=== PATIENT | male | born 1940 | race Caucasian/White ===

== ENCOUNTER 2018-04-29 10:13 | Inpatient (IN) | payer OTHER ==
[~2018-04-29] VITALS: Ht 175.3 cm; Wt 115.3 kg
--- NOTE | ~2018-04-29 | SPIROMETRY ---
[facility] [place] [address] SPIROMETRY Name: ABIMBOLA CHAMPION Room #: 205-P [facility] IN M.R.#: [id number] Admission: 04/29/18 Attend Phys: Esequiel Montes MD Discharge: 05/05/18 Date of : 38 Report #: [id number] THIS REPORT FOR: //name// >> SPIROMETRY: (BTPS) Height: 69 in cm Weight: 271 lbs kg Exam Date: 05/02/18 PRE-RX POST-RX PRED BEST %PRED BEST %PRED %CHG FVC LITERS . 3.93 . 2.70 . 69 . 2.68 . 68 . -1 FEV1 LITERS . 2.81 . 1.55 . 55 . 1.58 . 56 . 2 FEV1/FVC % . 72 . 57 . 80 . 59 . 82 . 3 OKV33-91% L/Sec . 1.97 . 0.81 . 41 . 0.94 . 48 . 16 PEF L/SEC . 7.23 . 4.12 . 57 . 4.10 . 57 . -0 FEF50/FIF50 UNITLESS . . . . . . >> INTERPRETATION/IMPRESSION: CC: Esequiel Montes SPIROMETRY FEV1 1.55 liters (55%). FVC 2.70 liters (69%). FEV1/FVC 57%. Postbronchodilator therapy with no change. IMPRESSION: Pulmonary function studies are consistent with a moderate-severe obstructive airflow defect, with no significant response to bronchodilator therapy. <ELECTRONICALLY SIGNED> By: Wilmer Mclean MD 05/05/182014 Wimler Mclean MD /nt
--- NOTE | ~2018-04-29 | P ---
[facility] [place] [address] PROCEDURE REPORT Name: JAYCEEABIMBOLA R Room #: 205-P [facility] IN M.R.#: [id number] Admission: 04/29/18 Attend Phys: Esequiel Montes MD Discharge: 05/05/18 Date of : 39 Report #: [id number] THIS REPORT FOR: //name// CC: Esequiel Montes PREOPERATIVE DIAGNOSIS: Sustained ventricular tachycardia. POSTOPERATIVE DIAGNOSIS: Sustained ventricular tachycardia. HISTORY: The patient is a 77-year-old male with a history of coronary artery disease, ischemic cardiomyopathy who had an episode of sustained ventricular tachycardia while in the hospital and is here for ICD implantation. ANESTHESIA: The patient underwent MAC anesthesia with no anesthesia related complications. DESCRIPTION OF PROCEDURE: The patient underwent informed consent. We discussed the details of the procedure including the risks, which include but not limited to bleeding, infection, vascular damage, cardiac perforation and pneumothorax. He understood these risks and is willing to proceed. The patient was brought to the EP laboratory in fasting and sedated state, prepped and draped in a sterile fashion, received IV antibiotics and underwent a venogram showing patency of the left axillary vein. Next, lidocaine was injected below the level of clavicle. Incision was made, pocket was created over the prepectoral fascia and access was obtained twice to left axillary vein using the extrathoracic approach with sheaths positioned using the modified Seldinger technique. Next, under fluoroscopy, leads were placed in the right ventricular apex and right atrial appendage both with adequate pacing and sensing thresholds. Leads were sutured to the prepectoral fascia. Pocket was irrigated with vancomycin. The device was connected and found to be functioning normally. The pocket was closed in 3 layers, 2-0 for the deep layer, 3-0 for the mid layer, 4-0 for the subcuticular layer. Surgical glue was placed to the outer skin layer. The patient awoke neurologically and hemodynamically intact. No complications and no significant bleeding. The implanted defibrillator was a [employer] model #VQ319493B, serial #[id number]. Atrial lead was a model #2088TC, 52 cm, serial #[id number] with normal pacing and sensing thresholds. The RV lead was a [employer] model #7122Q, 65 cm, serial #[id number] both with normal pacing and sensing thresholds. The device was programmed to the DDDR 60-120 mode. VT monitor zone was set at 150-180 beats per minute. The VT2 zone was set at 181-222 beats per minute with 3 rounds of bursts followed by 3 rounds of ramp followed by max output shocks. The VF zone was set at greater than 222 beats per minute with ATP while charging followed by max output shocks. CONCLUSIONS: [facility] [address] [place] [address] PROCEDURE REPORT Name: ABIMBOLA CHAMPION Room #: 205-P [facility] IN M.R.#: [id number] Admission: 04/29/18 Attend Phys: Esequiel Montes MD Discharge: 05/05/18 Date of : 38 Report #: [id number] 1. Successful dual-chamber ICD implantation. 2. Satisfactory atrial and ventricular pacing and sensing thresholds. <ELECTRONICALLY SIGNED> By: Joce Doughrety MD 05/19/18 0831 0856 1453 Joce Dougherty MD /nt
--- NOTE | ~2018-04-29 | EKG ---
[address] [address] ELECTROCARDIOGRAM REPORT Name: JAYCEEABIMBOLA Room #: 205-P ADM IN M.R.#: [id number] Admission: 04/29/18 Attend Phys: Esequiel Montes MD Discharge: Date of : 39 Report #: [id number] THIS REPORT FOR: //name// [facility] Test Date: 2018-04-30 Test Time: 06:49:01 Pat Name: ABIMBOLA CHAMPION Department: Room: 205 P Gender: M Sander And Polisher: : 1940 Requested By: Byron Holbrook Order Number: [id number] MD: Joce Dougherty Measurements Intervals [place] Rate: 89 P: 55 GA: 191 QRS: 29 QRSD: 132 T: -22 QT: 379 QTc: 462 Interpretive Statements Sinus rhythm Atrial premature complex Probable left atrial enlargement Left ventricular hypertrophy Electronically Signed On 05-01-2018 20:28:38 SUB PLANT MANAGER by Joce Dougherty [email or web address] <ELECTRONICALLY SIGNED> By: Joce Dougherty MD 05/01/182027 0649 0649 Joce Dougherty MD /MARIA DE JESUS
--- NOTE | ~2018-04-29 | 2DMMODE ---
[facility] [address] [place] [address] 2 D/M-MODE ECHOCARDIOGRAM Name: ABIMBOLA CHAMPION Room #: 205-P [facility] IN .R.#: [id number] Admission: 04/29/18 Attend Phys: Esequiel Montes, Discharge: Date of : 38 Date of Service: 04/29/18 1515 Report #: [id number] THIS REPORT FOR: //name// APPROVED REPORT Study performed: 04/29/2018 12:27:14 EXAM: Comprehensive 2D, Doppler, and color-flow Echocardiogram Patient Location: Bedside Room #: 205 Status: routine BSA: 2.36 HR: 83 bpm BP: 150/94 mmHg Rhythm: NSR/irregular Other Information Study Quality: Good Indications Congestive Heart Failure Dyspnea Hx: CABG, ISCM, HTN, HLP, cancer. 2D Dimensions RVDd: 49.54 mm IVSd: 13.07 (7-11mm) LVOT Diam: 21.86 (18-24mm) LVDd: 68.38 mm PWd: 12.00 (7-11mm) LVDs: 53.72 (25-40mm) Aortic Root: 35.00 mm Volumes Left Atrial Volume (Systole) Single Plane 4CH: 128.02 mL Single Plane 2CH: 149.63 mL LA ESV Index: 65.00 mL/m2 Aortic Valve AoV Peak Ba.: 2.75 m/s AO Peak Gr.: 30.15 mmHg LVOT Max P.74 mmHg AO Mean Gr.: 17.33 mmHg AO V2 Mean: 1.97 m/s LVOT Max V: 0.97 m/s AO V2 VTI: 58.45 cm YADIEL Vmax: 1.32 cm2 [facility] [address] [place] [address] 2 D/M-MODE ECHOCARDIOGRAM Name: ABIMBOLA CHAMPION Room #: 205-P [facility] IN [facility].#: [id number] Admission: 04/29/18 Attend Phys: Esequiel Montes, Discharge: Date of : 38 Date of Service: 04/29/18 1515 Report #: [id number] Mitral Valve E/A Ratio: 1.5 MV Decel. Time: 118.31 ms MV E Max Ab.: 1.20 m/s MV A Ab.: 0.81 m/s MV PHT: 34.31 ms IVRT: 66.90 ms Pulmonary Valve PV Peak Ab.: 1.08 m/s PV Peak Gr.: 4.65 mmHg Pulmonary Vein P Vein S: 0.40 m/s P Vein D: 0.74 m/s P Vein S/D Ratio: 0.54 Tricuspid Valve TR Peak Ab.: 3.39 m/s RAP Estimate: 10.00 mmHg TR Peak Gr.: 45.90 mmHg PA Pressure: 56.00 mmHg Left Ventricle Left ventricle is severely dilated. Mild concentric left ventricular hypertrophy. Left ventricular systolic function is mild-moderately decreased. Hypokinesis of base of septum and inferior prasad LVEF is 45%. Moderate diastolic dysfunction is present (pseudonormal filling). Right Ventricle The right ventricle is normal size. The right ventricular systolic function is normal. Atria Left atrium is severely dilated. Right atrium is mildly to moderately dilated. Aortic Valve Aortic valve is moderately calcified. Trace to mild aortic regurgitation. There is moderate valvular aortic stenosis. Calculated aortic valve area is 1.3 cm2 with maximum pressure gradient of 30 mmHg and mean pressure gradient of 17 mmHg. Mitral Valve The mitral valve is normal in structure. Severe mitral regurgitation. [facility] [address] [place] [address] 2 D/M-MODE ECHOCARDIOGRAM Name: ABIMBOLA CHAMPION Room #: 205-P [facility] IN [facility]#: [id number] Admission: 04/29/18 Attend Phys: Esequiel Montes, Discharge: Date of : 38 Date of Service: 04/29/18 1515 Report #: [id number] Tricuspid Valve The tricuspid valve is normal in structure. Trace to mild tricuspid regurgitation. Estimated PAP is 55-60mmHg. Pulmonic Valve Pulmonic valve is not well visualized. Trace pulmonic regurgitation. Great Vessels The aortic root is normal in size. Ascending aorta is not well visualized. IVC is dilated and collapses >50% with inspiration. Pericardium There is no pericardial effusion. <Conclusion> Left ventricular systolic function is mild-moderately decreased. Hypokinesis of base of septum and inferior prasad LVEF is 45%. Left atrium is severely dilated. Aortic valve is moderately calcified. Mild valvular aortic stenosis and insufficiency. Calculated aortic valve area is 1.3 cm2 with maximum pressure gradient of 30 mmHg and mean pressure gradient of 17 mmHg. The mitral valve is normal in structure. Severe, eccentric mitral regurgitation. Trace to mild tricuspid regurgitation. Estimated pulmonary artery pressure of 55-60mmHg. There is no pericardial effusion. <ELECTRONICALLY SIGNED> By: Byron Holbrook MD, FACC 04/29/18 1515 151 1515 Byron Holbrook MD, FACC /INF
--- NOTE | ~2018-04-29 | HC ---
[facility] [place] [address] [place] [address] CONSULTATION Name: JAYCEEABIMBOLA Room #: 205-P [facility] IN .R.#: [id number] Admission: 04/29/18 Attend Phys: Esequiel Montes MD Discharge: 05/05/18 Date of : 39 Report #: [id number] THIS REPORT FOR: //name// CC: Esequiel Montes DATE OF SERVICE: 05/02/2018 ELECTROPHYSIOLOGY CONSULTATION REASON FOR CONSULTATION: Sustained monomorphic VT. HISTORY OF PRESENT ILLNESS: The patient is a 77-year-old male, with a history of coronary artery disease, status post TX and prior bypass surgery, who was admitted here to the hospital with acute LV systolic heart failure. He had been off of his diuretic since his recent hip surgery. Today at 1:00 p.m., he was in the bathroom and telemetry was noted to go into sustained monomorphic ventricular tachycardia with a tachycardia cycle length of 300 milliseconds that lasted a period of 2 minutes and then terminated on its own. The patient felt presyncopal with this episode. On this hospitalization, he had an echocardiogram showing an EF of 45% with evidence of an inferior septal previous TX with severe left atrial enlargement with mild aortic stenosis and severe mitral regurgitation. PA pressures of 50-60. REVIEW OF SYSTEMS: GENERAL: No fevers or chills. HEENT: No blurred vision. CARDIOVASCULAR: No chest pain. PULMONARY: No productive cough. GASTROINTESTINAL: No nausea or vomiting. GENITOURINARY: No dysuria. MUSCULOSKELETAL: No myalgias or arthralgias. ENDOCRINE: No heat or cold intolerance. PAST MEDICAL HISTORY: 1. Coronary artery disease, status post TX, CABG in 2001. 2. Ischemic cardiomyopathy. 3. Hypertension. 4. Hyperlipidemia. 5. Prostate cancer. 6. Recent hip surgery. 7. Stress test in September 2016, nonischemic. FAMILY HISTORY: Noncontributory. SOCIAL HISTORY: Does not smoke. [facility] [address] [place] [address] CONSULTATION Name: ABIMBOLA CHAMPION Katelynn Room #: 205-P [facility]#: [id number] Admission: 04/29/18 Attend Phys: Esequiel Montes MD Discharge: 05/05/18 Date of : 38 Report #: [id number] ALLERGIES: None. HOME MEDICATIONS: Include olmesartan, Coreg, atorvastatin, vitamins, acetaminophen, aspirin, hydrocodone and gabapentin. PHYSICAL EXAMINATION: VITAL SIGNS: Temperature is 36.6, pulse 93, respiration 14, blood pressure 132/60, sats are 96%. GENERAL: He is in no acute distress. Alert and oriented x 3. HEENT: Oropharynx is clear. NECK: Supple, no thyromegaly. HEART: Regular rate and rhythm with no murmurs, rubs, gallops. LUNGS: Clear to auscultation bilaterally. ABDOMEN: Soft, nontender, nondistended, no hepatosplenomegaly. EXTREMITIES: There is no clubbing, cyanosis or edema. NEUROLOGIC: Cranial nerves 2-12 are intact. LABORATORY DATA: Sodium 139, potassium 4.2, BUN 41, creatinine 1.7, magnesium 2.3. pH of 7.3, pCO2 of 79, pO2 of 71. ProBNP was 2724. His 12-lead EKG this hospitalization shows normal sinus rhythm, no ischemic changes and a narrow QRS complex. His chest x-ray shows enlarged cardiac silhouette, some cephalization, sternal wires and no evidence of pneumonia. No pleural effusions. CT head, no acute process. Lower extremity ultrasounds, no thrombus bilaterally. V/Q scan that was low probability. ASSESSMENT AND PLAN: 1. Sustained monomorphic ventricular tachycardia. 2. Ischemic cardiomyopathy. 3. Coronary artery disease. 4. Prior bypass surgery. 5. Acute on chronic left ventricular systolic heart failure. 6. Obstructive sleep apnea. 7. Hypercapnia, likely secondary to obesity hypoventilation syndrome and sleep apnea. In summary, the patient is a 77-year-old, with history of coronary artery disease, status post prior myocardial infarction as well as an ischemic cardiomyopathy, who has evidence of an episode of spontaneous sustained ventricular tachycardia at 300 milliseconds in duration that lasted 2 minutes with associated presyncopal symptoms. This was noted to induce with premature ventricular contraction. Based on these findings, I have recommended that he undergo dual chamber ICD implantation given his known sinus node dysfunction and advanced age and to help with discrimination of other arrhythmias. We have discussed the details of ICD implantation including the risks, which include, but not limited to, bleeding, infection, vascular damage, cardiac perforation and pneumothorax. He understands these risks and is willing to proceed. After [facility] [address] [place] [address] CONSULTATION Name: ABIMBOLA CHAMPION Katelynn Room #: 205-P [facility] IN M.R.#: [id number] Admission: 04/29/18 Attend Phys: Esequiel Montes MD Discharge: 05/05/18 Date of : 38 Report #: [id number] discussing the case with Dr. Holbrook, given his known prior myocardial infarction, he does have substrate for this ventricular tachycardia. I do not think an ischemic evaluation is warranted. He has had no ischemia and EKGs. I would recommend that we initiate amiodarone therapy. We will initiate an IV drip tonight. I do not think he is a good candidate for sotalol given his chronic renal insufficiency and advanced age and electrolyte imbalances. <ELECTRONICALLY SIGNED> By: Joce Dougherty MD 05/19/18 0832 1448 0339 Joce Dougherty MD /nt
--- NOTE | ~2018-04-29 | EKG ---
[address] [address] ELECTROCARDIOGRAM REPORT Name: ABIMBOLA CHAMPION Room #: 205-P ADM IN M.R.#: [id number] Admission: 04/29/18 Attend Phys: Esequiel Montes MD Discharge: Date of : 39 Report #: [id number] THIS REPORT FOR: //name// [facility] Test Date: 2018-04-29 Test Time: 11:52:16 Pat Name: ABIMBOLA CHAMPION Department: Room: Gender: M Manager Culture: MATTHIAS : 1940 Requested By: Areli Mcneil Order Number: [id number] MD: Joce Dougherty Measurements Intervals [place] Rate: 75 P: 52 RI: 190 QRS: 29 QRSD: 123 T: -17 QT: 372 QTc: 416 Interpretive Statements Sinus rhythm Atrial premature complexes Probable left atrial enlargement IVCD, consider atypical LBBB Compared to ECG 02/15/2002 06:09:07 Atrial premature complex(es) now present Myocardial infarct finding no longer present ST (T wave) deviation no longer present Electronically Signed On 05-01-2018 20:16:25 EXCELLENCE CONSULTANT by Joce Dougherty [email or web address] <ELECTRONICALLY SIGNED> By: Joce Dougherty MD 05/01/182015 1152 115 Joce Dougherty MD /EPI
--- NOTE | ~2018-04-29 | EKG ---
[address] [place] [address] ELECTROCARDIOGRAM REPORT Name: JAYCEEABIMBOLA Pace Room #: 205-P ADM IN M.R.#: [id number] Admission: 04/29/18 Attend Phys: Esequiel Montes MD Discharge: Date of : 38 Report #: [id number] THIS REPORT FOR: //name// [facility] Test Date: 2018-05-02 Test Time: 13:18:49 Pat Name: ABIMBOLA CHAMPION Department: Room: 205 P Gender: M Drapery Hemmer Automatic: SCARLETT : 1940 Requested By: Esequiel Montes Order Number: [id number] MD: Byron Holbrook Measurements Intervals [place] Rate: 93 P: 60 ND: 187 QRS: 20 QRSD: 128 T: -40 QT: 350 QTc: 436 Interpretive Statements Sinus rhythm Ventricular premature complex IVCD Inferior infarct, age indeterminate Nonspecific ST and T wave abnormality Compared to ECG 04/30/2018 06:49:01 Ventricular premature complex(es) now present Electronically Signed On 05-03-2018 8:42:47 MERCHANT MILLER by Byron Holbrook [email or web address] <ELECTRONICALLY SIGNED> By: Byron Holbrook MD, [facility] 05/03/18 0842 1318 1318 Byron Holbrook MD, [facility] /EPI
[~2018-04-29 10:13] MED LIST: APAP650 PO; ASPIRIN325 PO; ATORVASTATIN CA40 MG PO; BENICAR40 MG PO; COREG25 MG PO; HYDROCODON-ACE1 EAC7 PO; NEURONTIN 300300 M1 PO; PRESERVISION A1 EACH PO; TRI-BUFFERED A325 M1 PO
[2018-04-29 11:33] LABS: HEMATOCRIT 33.3 % (42.0-52.0); HEMOGLOBIN 11.1 gm/dL (14.0-18.0); MCH 31.8 pg (26.0-34.0); MCHC 33.4 g/dL (28.0-37.0); MCV 95.3 fL (80.0-100.0); RBC 3.49 mil/uL (4.50-6.00); RDW 15.9 % (10.5-14.5); WBC 8.9 thou/uL (4.0-11.0)
[2018-04-29 11:47] LABS: ALBUMIN 3.5 g/dL (3.4-5.0); CALCIUM 8.7 mg/dL (8.5-10.1); CREATININE 1.3 mg/dL (0.7-1.3); POTASSIUM 4.9 mmol/L (3.5-5.1); TOTAL BILIRUBIN 0.8 mg/dL (<0.1-1.0); TOTAL PROTEIN 7.6 g/dL (6.4-8.2)
[2018-04-29 12:09] VITALS: BP 150/94
[2018-04-29 16:56] VITALS: BP 137/82
[2018-04-29 19:51] VITALS: BP 131/68
[2018-04-30 04:06] VITALS: BP 168/86
[2018-04-30 04:41] LABS: CALCIUM 8.4 mg/dL (8.5-10.1); CREATININE 1.4 mg/dL (0.7-1.3); POTASSIUM 5.6 mmol/L (3.5-5.1)
[2018-04-30 08:16] VITALS: BP 136/76
[2018-04-30 12:57] VITALS: BP 129/55
[2018-04-30 15:09] LABS: BE(vivo) 8.8 mmol/L (-2 to +3); PO2 83.9 mmHg (80.0-100.0); sO2 91.9 % (92.0-98.0)
[2018-04-30 15:10] LABS: PCO2 118.7 mmHg (35.0-45.0); pH 7.156 (7.360-7.450)
[2018-04-30 16:36] VITALS: BP 148/88
[2018-04-30 16:58] LABS: BE(vivo) 7.9 mmol/L (-2 to +3); HCO3 37.6 mmol/L (22.0-26.0); PCO2 86.4 mmHg (35.0-45.0); PO2 71.5 mmHg (80.0-100.0); pH 7.257 (7.360-7.450); sO2 90.9 % (92.0-98.0)
[2018-04-30 19:50] VITALS: BP 138/72
[2018-04-30 20:08] LABS: HCO3 37.5 mmol/L (22.0-26.0); PO2 90.8 mmHg (80.0-100.0); sO2 95.8 % (92.0-98.0)
[2018-04-30 20:09] LABS: pH 7.311 (7.360-7.450)
[2018-05-01 03:54] VITALS: BP 123/64
[2018-05-01 05:11] LABS: CALCIUM 8.7 mg/dL (8.5-10.1); CREATININE 1.7 mg/dL (0.7-1.3); POTASSIUM 4.3 mmol/L (3.5-5.1)
[2018-05-01 07:25] VITALS: BP 127/62
[2018-05-01 11:31] VITALS: BP 104/55
[2018-05-01 17:30] VITALS: BP 134/77
[2018-05-01 19:55] VITALS: BP 125/56
[2018-05-02 03:51] LABS: CALCIUM 8.4 mg/dL (8.5-10.1); CREATININE 1.5 mg/dL (0.7-1.3); POTASSIUM 4.7 mmol/L (3.5-5.1)
[2018-05-02 04:00] VITALS: BP 143/89
[2018-05-02 12:01] VITALS: BP 150/86
[2018-05-02 13:25] VITALS: BP 132/60
[2018-05-02 13:26] LABS: BE(vivo) 8.1 mmol/L (-2 to +3); HCO3 34.9 mmol/L (22.0-26.0); PCO2 59.9 mmHg (35.0-45.0); PO2 71.6 mmHg (80.0-100.0); pH 7.383 (7.360-7.450); sO2 93.8 % (92.0-98.0)
[2018-05-02 13:41] LABS: CALCIUM 9.4 mg/dL (8.5-10.1); CREATININE 1.7 mg/dL (0.7-1.3); POTASSIUM 4.2 mmol/L (3.5-5.1)
[2018-05-02 16:25] VITALS: BP 148/59
[2018-05-02 16:30] LABS: CALCIUM 9.1 mg/dL (8.5-10.1); CREATININE 1.6 mg/dL (0.7-1.3)
[2018-05-02 19:28] VITALS: BP 129/62
[2018-05-03 03:17] VITALS: BP 130/70
[2018-05-03 07:30] VITALS: BP 130/74
[2018-05-03 11:15] VITALS: BP 115/81
[2018-05-03 15:40] VITALS: BP 135/84
[2018-05-03 19:30] VITALS: BP 137/68
[2018-05-04] VITALS (7 sets, daily range): BP systolic 115–156; BP diastolic 64–95
[2018-05-04] MEDS ORDERED: COREG6.25 MG PO (07:24)
[2018-05-04] MEDS ORDERED: TORSEMIDE20 MG PO (07:25)
[2018-05-04] MEDS ORDERED: PREDNISONE 10 M10 MG PO (07:25)
[2018-05-04] MEDS ORDERED: ASPIR 8181 MG PO (07:26)
[2018-05-05 04:20] VITALS: BP 144/81
[2018-05-05 08:01] VITALS: BP 145/99
[2018-05-05 11:13] VITALS: BP 106/58
[2018-05-05] MEDS ORDERED: PACERONE 200 M200 M1 PO (12:33)
[2018-05-05] MEDS ORDERED: CARVEDILOL25 MG PO (12:40)
== END 2018-05-05 14:30 | disposition home or self-care (01) | DRG 226 ==
LOC: 2N 10:13
PROVIDERS: Family Medicine; Internal Medicine Cardiovascular Disease; Nurse Practitioner Gerontology; Pediatrics
PROC: 5A09357 Assistance with Respiratory Ventilation, Less than 24 Consecutive Hours, Continuous Positive Airway Pressure (ICD-10-PCS; principal; 2018-04-30)
PROC: 5A09357 Assistance with Respiratory Ventilation, Less than 24 Consecutive Hours, Continuous Positive Airway Pressure (ICD-10-PCS; 2018-05-01)
PROC: 02H63KZ Insertion of Defibrillator Lead into Right Atrium, Percutaneous Approach (ICD-10-PCS; 2018-05-03)
PROC: 0JH608Z Insertion of Defibrillator Generator into Chest Subcutaneous Tissue and Fascia, Open Approach (ICD-10-PCS; 2018-05-03)
PROC: 02HK3KZ Insertion of Defibrillator Lead into Right Ventricle, Percutaneous Approach (ICD-10-PCS; 2018-05-03)
DX: I47.2 Ventricular tachycardia (principal); J96.22 Acute and chronic respiratory failure with hypercapnia; I50.43 Acute on chronic combined systolic (congestive) and diastolic (congestive) heart failure; N17.9 Acute kidney failure, unspecified; I38 Endocarditis, valve unspecified; I13.0 Hypertensive heart and chronic kidney disease with heart failure and stage 1 through stage 4 chronic kidney disease, or unspecified chronic kidney disease; E78.00 Pure hypercholesterolemia, unspecified; Z96.641 Presence of right artificial hip joint; I25.10 Atherosclerotic heart disease of native coronary artery without angina pectoris; E78.5 Hyperlipidemia, unspecified; I25.5 Ischemic cardiomyopathy; M19.90 Unspecified osteoarthritis, unspecified site; D64.9 Anemia, unspecified; G47.33 Obstructive sleep apnea (adult) (pediatric); N18.9 Chronic kidney disease, unspecified; E87.5 Hyperkalemia; I27.20 Pulmonary hypertension, unspecified; E66.01 Morbid (severe) obesity due to excess calories; E11.51 Type 2 diabetes mellitus with diabetic peripheral angiopathy without gangrene; E11.22 Type 2 diabetes mellitus with diabetic chronic kidney disease; I34.0 Nonrheumatic mitral (valve) insufficiency; Z79.82 Long term (current) use of aspirin; Z68.37 Body mass index [BMI] 37.0-37.9, adult; Z79.899 Other long term (current) drug therapy; Z90.49 Acquired absence of other specified parts of digestive tract; Z85.46 Personal history of malignant neoplasm of prostate; Z95.1 Presence of aortocoronary bypass graft; I25.2 Old myocardial infarction

== ENCOUNTER → 2018-05-26 | Outpatient (CLI) | payer OTHER ==
[~2018-05-26] MED LIST changes: +ASPIR 8181 MG PO; +CARVEDILOL25 MG PO; +COREG6.25 MG PO; +PACERONE 200 M200 M1 PO; +PREDNISONE 10 M10 MG PO; +TORSEMIDE20 MG PO
--- NOTE | ~2018-05-26 | SLE ---
[facility] [place] [address] [place] [address] POLYSOMNOGRAPHY STUDY Name: JAYCEEABIMBOLA R Room #: [facility]#: [id number] Admission: 05/26/18 Attend Phys: Haris Sullivan MD Discharge: Date of : 38 Report #: [id number] THIS REPORT FOR: //name// CC: Haris Montes DATE OF SERVICE: 05/26/2018 ATTENDING PHYSICIAN: Not listed. The patient is a 77-year-old who weighs 240 pounds and is 69 inches tall with a BMI of 35.4. The patient's [place] score was 5. The patient underwent split night study at [facility]. During the night of study, the patient spent 517 minutes in bed and slept for 211 minutes with a low sleep efficiency of 41%. Sleep latency was 6.8 minutes with absent REM sleep. Overall, sleep architecture showed increased stage 1 sleep, which was 71% of the total sleep time; reduced stage 2 sleep, which was 29% of the total sleep time. There was absent N3 sleep and REM sleep. During the initial diagnostic portion of the study, the patient spent 316 minutes in bed and slept for 125 minutes. During that time, the patient had 158 obstructive apneas, 7 mixed apneas and 3 central apneas and 41 hypopneas. The patient's apnea hypopnea index was 100 per hour. REM sleep was not observed. Supine AHI was 100 per hour. EKG monitoring revealed an average heart rate of 77 beats per minute with a maximum of 99 beats per minute. No sustained arrhythmias were observed. Occasional tachycardia seen with a maximum heart rate of 104 beats per minute. Occasional PVCs seen. PLMs were seen at an index of 51 per hour and 8 per hour caused EEG arousals. PLM index did improve while the patient was on CPAP to 26 per hour with an arousal index of 11 per hour. Nocturnal oximetry study revealed an average oxygen saturation of 93% with the lowest of 77%. 29 minutes were spent in oxygen saturation of less than 89%. The patient met the split night criteria for CPAP initiation. It was started at 7 cm water and titrated up to 13 cm water. Even though the patient had only 8 minutes of sleep at the final pressure, it was therapeutic as at a lower pressure of 11 cm H20( 45 min) ,patient did well with an AHI of 4/hr. At a final pressure of 13 cm water, the patient had 8 minutes of sleep. The patient had supine sleep, but no REM sleep. AHI was 0 per hour and oxygen saturation remained above 93%, this should be [place] [address] POLYSOMNOGRAPHY STUDY Name: ABIMBOLA CHAMPION Room #: REG [facility] Sascha#: [id number] Admission: 05/26/18 Attend Phys: Haris Sullivan MD Discharge: Date of : 38 Report #: [id number] IMPRESSION: 1. Severe sleep apnea-hypopnea syndrome at an AHI of 100.3 per hour. 2. Nocturnal hypoxia secondary to obstructive sleep apnea, but resolved with continuous positive airway pressure. 3. Severe periodic limb movements. RECOMMENDATIONS: 1. CPAP at 13 cm water completely eliminated the patient's sleep apnea and should be used on a nightly basis. 2. Follow up in 4-6 weeks to assess compliance with CPAP and to document clinical improvement. 3. Weight loss is strongly advised. 4. Avoid PATIENT SCHEDULER depressants. 5. Cautioned regarding driving until symptoms of sleep apnea resolve with the use of CPAP. 6. The patient should also be evaluated for symptoms of restless legs during the day and if present, it can be treated with dopaminergic agonist agents. 7. The patient had reduced sleep efficiency. It was predominantly resulting from sleep maintenance insomnia. If after effective use of CPAP, insomnia persists, then it should be further evaluated. <ELECTRONICALLY SIGNED> By: Haris Sullivan MD 05/29/18 2126 1057 1120 Haris Sullivan MD /nt
== END ==
LOC: SLEEPLAB 05-23 14:35
DX: G47.33 Obstructive sleep apnea (adult) (pediatric) (principal); G47.61 Periodic limb movement disorder; R09.02 Hypoxemia

== ENCOUNTER → 2018-10-04 | Outpatient (CLI) | payer OTHER ==
[~2018-10-04] VITALS: Ht 170.2 cm; Wt 108.0 kg
[~2018-10-04] MED LIST changes: +DEMADEX20 MG PO; +ELIQUIS5 MG PO
[2018-10-04 06:59] LABS: HEMATOCRIT 31.2 % (42.0-52.0); HEMOGLOBIN 10.4 gm/dL (14.0-18.0); MCH 33.1 pg (26.0-34.0); MCHC 33.5 g/dL (28.0-37.0); RBC 3.15 mil/uL (4.50-6.00); RDW 13.5 % (10.5-14.5)
[2018-10-04 07:07] LABS: CALCIUM 9.4 mg/dL (8.5-10.1); CREATININE 2.2 mg/dL (0.7-1.3); POTASSIUM 5.4 mmol/L (3.5-5.1)
[2018-10-04 07:15] VITALS: BP 138/68
--- NOTE | 2018-10-04 08:37 | NUR ---
PT CATH CANCELLED DUE TO [facility]. DR STEWART IN TO SEE PT AND . OFFICE WILL CONTACT FOR FOLLOW APPT. VSS. JUANPABLO DC'D. WC ASSIST TO CAR. PLEASENT AFFECT. NO C/O. VOICED UNDERSTANDING OF PLANS.
== END | disposition home or self-care (01) ==
LOC: CATH 06:34
PROVIDERS: Internal Medicine
DX: R94.39 Abnormal result of other cardiovascular function study (principal); Z53.8 Procedure and treatment not carried out for other reasons; I11.0 Hypertensive heart disease with heart failure; I50.9 Heart failure, unspecified; I25.2 Old myocardial infarction; I42.9 Cardiomyopathy, unspecified; E78.5 Hyperlipidemia, unspecified; E78.00 Pure hypercholesterolemia, unspecified; I48.91 Unspecified atrial fibrillation; I73.9 Peripheral vascular disease, unspecified; Z79.899 Other long term (current) drug therapy; Z95.1 Presence of aortocoronary bypass graft; Z96.641 Presence of right artificial hip joint; Z90.49 Acquired absence of other specified parts of digestive tract; Z82.49 Family history of ischemic heart disease and other diseases of the circulatory system; Z98.890 Other specified postprocedural states; Z79.01 Long term (current) use of anticoagulants; Z85.46 Personal history of malignant neoplasm of prostate

== ENCOUNTER → 2018-10-06 | Outpatient (CLI) | payer OTHER | LOC: ULTRA 10:34 | DX: N28.9 Disorder of kidney and ureter, unspecified (principal); N28.1 Cyst of kidney, acquired ==

== ENCOUNTER → 2018-10-13 | Outpatient (CLI) | payer OTHER ==
[~2018-10-13] VITALS: Ht 175.3 cm; Wt 106.1 kg
[2018-10-13 07:14] LABS: HEMATOCRIT 33.4 % (42.0-52.0); HEMOGLOBIN 11.4 gm/dL (14.0-18.0); MCH 33.2 pg (26.0-34.0); MCHC 34.1 g/dL (28.0-37.0); MCV 97.3 fL (80.0-100.0); RBC 3.43 mil/uL (4.50-6.00); RDW 13.9 % (10.5-14.5); WBC 7.7 thou/uL (4.0-11.0)
[2018-10-13 07:25] LABS: CALCIUM 9.3 mg/dL (8.5-10.1); CREATININE 1.9 mg/dL (0.7-1.3); POTASSIUM 4.7 mmol/L (3.5-5.1)
[2018-10-13 07:29] VITALS: BP 155/70
[2018-10-13 07:31] LABS: ALBUMIN 3.8 g/dL (3.4-5.0); TOTAL BILIRUBIN 0.8 mg/dL (<0.1-1.0); TOTAL PROTEIN 7.4 g/dL (6.4-8.2)
--- NOTE | 2018-10-13 08:06 | EKG ---
[address] [address] ELECTROCARDIOGRAM REPORT Name: ABIMBOLA CHAMPION Room #: REG [facility]#: [id number] ������������������ Admission: 10/13/18 ������������������ Attend Phys: Byron Holbrook MD, Discharge: ������������������ Date of : 38 Report #: [id number] ����������������������������������������������������������������� [id number] THIS REPORT FOR: //name// [facility] Test Date: 2018-10-13 Test Time: 07:35:09 Pat Name: ABIMBOLA CHAMPION Department: Room: Gender: M Auto Radiator Mechanic: Terri ESPINOSA : 1940 Requested By: Byron Holbrook Order Number: [id number] MD: Joce Dougherty Measurements Intervals [place] Rate: 67 P: 40 NM: 227 QRS: 24 QRSD: 130 T: 12 QT: 424 QTc: 448 Interpretive Statements Sinus rhythm Prolonged NM interval Probable left atrial enlargement IVCD, consider atypical LBBB Compared to ECG 05/02/2018 13:18:49 First degree AV block now present Ventricular premature complex(es) no longer present Myocardial infarct finding no longer present ST (T wave) deviation no longer present Electronically Signed On 10-13-2018 8:06:42 CDT by Joce Dougherty [email or web address] ��������������������������������������������� <ELECTRONICALLY SIGNED> ���������������������������������������� By: Joce Dougherty MD ��������������������������������������������� 10/13/1806 Joce Dougherty MD /EPI
--- NOTE | 2018-10-13 09:29 | CATHLAB ---
[facility] [address] [place] [address] INVASIVE PROCEDURE REPORT Name: JAYCEEABIMBOLA R Room #: REG PENDING SALE TO [facility]#: [id number] ������������� Admission: 10/13/18 ������������� Attend Phys: Byron Holbrook, Discharge: ��� ������������� ��� Date of : 38 Date of Service: 10/13/18 0929 �� Report #: [id number] �������� ��������������������������������������������[id number] THIS REPORT FOR: //name// APPROVED REPORT Study performed: 10/13/2018 07:48:27 Patient Details Patient Status: Out-Patient Room #: The patient is a 77 year-old male Event Personnel Byron Holbrook Horticultural Agent, Maxwell Villarreal RN RN, Elzbieta aLdd Jackson, Valisa Monitor Procedures Performed Coronary Angiography Only [id number] CORANG Indication Chest pain Procedure Narrative The Right Groin^ was infiltrated with 1% Lidocaine subcutaneous anesthesia. A PINNACLE 6FR Sheath #[id number] sheath was inserted into the RFA^. Coronary angiography was performed using coronary diagnostic catheters. The right coronary system was accessed and visualized with a JR4 catheter. The left coronary system was accessed and visualized with a JL4 catheter. Closure device was deployed with a Fr MYNXGRIP 6/7F #[id number]. The patient tolerated the procedure well and there were no complications associated with the procedure. There was no hematoma. Intraoperative Conscious Sedation Sedation start time: 0750 Case end Time: 0850 Fentanyl 50 mcg Versed 1 mg Fluoro Time: 21.52 minutes Dose: DAP 20245.00 cGycm2 Contrast Type and Amount: Visipaque 160 ml Diagnostic Cath Left Main 99% distal LM stenosis LAD Occluded proximal LAD Widely patent TYLER to LAD [facility] [address] [place] [address] INVASIVE PROCEDURE REPORT Name: ABIMBOLA CHAMPION Room #: REG PENDING SALE TO [facility]#: [id number] ������������� Admission: 10/13/18 ������������� Attend Phys: Byron Holbrook, Discharge: ��� ������������� ��� Date of : 38 Date of Service: 10/13/18928 �� Report #: [id number] �������� ��������������������������������������������[id number] Diagonal 1 Occluded SVG to Diag Circumflex Occluded proximal circumflex Widely patent radial from aorta to OM Right Coronary Occluded proximal right coronary Occluded SVG to RCA. Faint left to RCA collaterals on injection of TYLER Left Ventriculography Left Ventriculography was not performed. Hemodynamics The aortic pressure is 119/66 mmHg with a mean of 87 mmHg. Conclusion 1. Severe [place] coronary artery disease 2. Patent TYLER to LAD 3. Patent radial to OM 4. Occluded SVG to diag 5. Occluded SVG to RCA. Left to RCA collaterals Recommendations [facility] ��������������������������������������������� <ELECTRONICALLY SIGNED> ���������������������������������������� By: Byron Holbrook MD, [facility] ��������������������������������������������� 10/13/18928 8 8 Byron Holbrook MD, FACC /INF
== END | disposition home or self-care (01) ==
LOC: CATH 06:36
PROVIDERS: Internal Medicine
DX: I25.10 Atherosclerotic heart disease of native coronary artery without angina pectoris (principal); I42.9 Cardiomyopathy, unspecified; I11.0 Hypertensive heart disease with heart failure; I50.9 Heart failure, unspecified; I25.2 Old myocardial infarction; E78.00 Pure hypercholesterolemia, unspecified; E78.5 Hyperlipidemia, unspecified; Z95.5 Presence of coronary angioplasty implant and graft; Z90.49 Acquired absence of other specified parts of digestive tract; Z95.1 Presence of aortocoronary bypass graft; Z98.890 Other specified postprocedural states; Z96.641 Presence of right artificial hip joint; Z95.810 Presence of automatic (implantable) cardiac defibrillator; Z79.01 Long term (current) use of anticoagulants; Z87.891 Personal history of nicotine dependence; Z79.899 Other long term (current) drug therapy

== ENCOUNTER → 2018-10-24 | Outpatient (CLI) | payer OTHER | LOC: MRI 09:01 | DX: N13.30 Unspecified hydronephrosis (principal); N28.1 Cyst of kidney, acquired; K44.9 Diaphragmatic hernia without obstruction or gangrene; M47.816 Spondylosis without myelopathy or radiculopathy, lumbar region ==

== ENCOUNTER 2019-04-03 06:46 | Inpatient (IN) | payer OTHER ==
[2019-03-22 13:15] LABS: HEMATOCRIT 35.9 % (42.0-52.0); MCH 32.8 pg (26.0-34.0); MCHC 33.4 g/dL (28.0-37.0); MCV 98.2 fL (80.0-100.0); RBC 3.65 mil/uL (4.50-6.00); WBC 6.6 thou/uL (4.0-11.0)
[2019-03-22 13:27] LABS: PROTIME 10.9 Seconds (9.3-11.4)
[2019-03-22 13:28] LABS: URINE BILIRUBIN NEGATIVE (Negative); URINE BLOOD NEGATIVE (Negative); URINE CLARITY CLEAR; URINE COLOR YELLOW; URINE GLUCOSE-RANDOM* NEGATIVE (Negative); URINE KETONES NEGATIVE (Negative); URINE LEUKOCYTES-REFLEX NEGATIVE (Negative); URINE NITRITE-REFLEX NEGATIVE (Negative); URINE PROTEIN (DIPSTICK) NEGATIVE (Negative); URINE UROBILINOGEN 0.2 E.U./dl (0.2-1.0)
[2019-03-22 13:31] LABS: ALBUMIN 3.9 g/dL (3.4-5.0); CALCIUM 8.5 mg/dL (8.5-10.1); CREATININE 1.8 mg/dL (0.7-1.3); POTASSIUM 5.4 mmol/L (3.5-5.1)
[~2019-04-03] VITALS: Ht 170.2 cm; Wt 106.6 kg
[~2019-04-03 06:46] MED LIST changes: +BENICAR20 MG PO; +CENTRUM SILVER1 EAC2 PO; +PACERONE200 MG PO; +SYNTHROID50 MCG PO
[2019-04-03 09:56] VITALS: BP 155/77
[2019-04-03 14:00] VITALS: BP 119/67
[2019-04-03 14:15] VITALS: BP 116/59
[2019-04-03 14:30] VITALS: BP 104/64
[2019-04-03 15:30] VITALS: BP 116/61
--- NOTE | 2019-04-03 18:30 | NUR ---
PT RECEIVED FROM THE REC RM AT 1245 ALERT AND IN NO PAIN. ASSESSMENT COMPLETED. VSS. POLAR JUSTUS IN PLACE. DSNG DRY W/ ICE PACK. USING URINAL IN BED FOOT STILL NUMB WHEN THERAPIST WORKED W/ HIM THIS AFTERNOON. DENIES PAIN. EATING AND DRINKING WELL. HOME CPAP AT BEDSIDE.
[2019-04-03 20:41] VITALS: BP 136/60
--- NOTE | 2019-04-04 02:13 | NUR ---
ASSUMED CARE OF PT @1900 PT ASSESSED AT START OF SHIFT A&OX4 WITH C/O OF PAIN. PAIN MEDS GIVEN SEE EMAR. KAILYN DRESSING INTACT IN LFT HIP AND ICE PACK IN PLACE. URINAL @ BEDSIDE. CPAP AT BEDTIME. FALL PREC IN PLACE AND WILL CONT WITH POC TILL EOS
[2019-04-04 05:52] VITALS: BP 132/65
[2019-04-04 05:52] LABS: HEMATOCRIT 28.7 % (42.0-52.0); HEMOGLOBIN 9.7 gm/dL (14.0-18.0); MCH 33.2 pg (26.0-34.0); MCHC 33.7 g/dL (28.0-37.0); MCV 98.5 fL (80.0-100.0); RBC 2.91 mil/uL (4.50-6.00); RDW 14.6 % (10.5-14.5); WBC 12.6 thou/uL (4.0-11.0)
[2019-04-04 08:08] VITALS: BP 118/70
[2019-04-04] MEDS ORDERED: NEURONTIN 300300 M1 PO (10:34)
--- NOTE | 2019-04-04 12:49 | NUR ---
INITIAL ASSESSMENT: Pt evaluated for d/c planning needs. Reviewed chart and spoke with nurse, pt and spouse. Pt is alert and oriented. Pt lives in house with spouse and was independent with ADL's prior to admission. Pt has walker and cane at home. Pt has not had home health in the past. Pt is scheduled for outpatient physical therapy. Will remain available to assist as needed.
[2019-04-04 13:49] VITALS: BP 118/70
[2019-04-04 14:10] VITALS: BP 118/70
--- NOTE | 2019-04-04 14:24 | NUR ---
DISCHARGE PAPERS GONE OVER SIGNED AND COPY IN CHART. RX GIVEN IV ACSESS DCD. ALL BELONGINGS PACKED AND SENT WITH PATIENT. PICCO INFO SENT WITH PATIENT.
--- NOTE | 2019-04-16 09:25 | O ---
[facility] [address] [place] [address] OPERATIVE REPORT Name: ABIMBOLA CHAMPION Room #: 438-P [facility] IN M.R.#: [id number] Admission: 04/03/19 Attend Phys: Jose Chandra MD Discharge: 04/04/19 Date of : 38 Report #: [id number] THIS REPORT FOR: //name// CC: Esequiel Chandra DATE OF SERVICE: 04/03/2019 PREOPERATIVE DIAGNOSIS: Left hip osteoarthritis. POSTOPERATIVE DIAGNOSIS: Left hip osteoarthritis. PROCEDURE: Left total hip arthroplasty. SURGEON: Jose Chandra MD. GEOGRAPHY FACULTY MEMBER: Caridad Gonzalez PA-C. INDICATIONS FOR GEOGRAPHY FACULTY MEMBER: Throughout the case, extensive retraction and manipulation of the hip was required including dislocation and reduction. This was afforded to me by my city carrier assistant. ANESTHESIA: General. IMPLANTS: Hamilton and Nephew size 11 high offset Synergy press-fit femur, a size 54 R3 acetabular cup with a 36+4 cobalt chrome head. ESTIMATED BLOOD LOSS: 100 mL. COMPLICATIONS: None. SPECIMENS: None. CONDITION UPON LEAVING THE OPERATING ROOM: Stable. INDICATIONS FOR PROCEDURE: The patient is a 78-year-old gentleman with severe left hip osteoarthritis. He had failed conservative measures for this and after discussion with him, he elected for left total hip arthroplasty. DESCRIPTION OF PROCEDURE: Risks, benefits, alternatives, complications were discussed in detail with the patient including but not limited to risk of anesthesia, risk of damage to nerves, arteries, blood vessels, risk for infection, bleeding, risk for continued hip pain, leg length discrepancy, instability and need for reoperation. Informed consent was obtained from the patient. Left hip was appropriately marked in the preoperative holding area. IV Ancef was given for preoperative antibiotics. He was brought to the [facility] [address] [place] [address] OPERATIVE REPORT Name: JAYCEEABIMBOLA Room #: 438-P [facility] IN [place].Katelynn.#: [id number] Admission: 04/03/19 Attend Phys: Jose Chandra MD Discharge: 04/04/19 Date of : 38 Report #: [id number] operating room and placed in supine position on operating room table. General anesthesia was induced without complication. He was then placed in the right lateral decubitus position with the left hip uppermost. Left hip and lower extremity were then prepped and draped in normal sterile fashion. Timeout was performed properly identifying the patient and procedure as well as the instrumentation and implants. All in the operating room were in agreement. Standard posterior approach to the hip was made with 10 blade through the skin. Dissection was taken down to the fascia with Bovie cautery and Leone elevator was used to clean the fascia. A fresh #10 blade was used to make a fascial incision. This was taken proximally and distally with curved Gilman scissor. Trochanteric bursa was taken down with Bovie cautery. Piriformis tendon was identified, tagged and taken down with Bovie. Short external rotators were also taken down with Bovie cautery. Capsulotomy was made and capsule ends were tagged for later repair. Hip was dislocated and there was noted to be severe osteoarthritic change of the femoral head. Femoral neck cut was made 1 cm proximal to lesser trochanter based on preoperative templating and the femoral head was removed. Deep acetabular retractors were placed. Labrum was removed sharply. pulvinar was removed with Bovie cautery. Acetabulum was then sequentially reamed up to a size 54, at which point, there was excellent bleeding cancellous bone. This was trialed with a size 53 cup and found to have a good fit. A final size 54 R3 acetabular cup was then placed and seated. One acetabular screw was placed for backup fixation and a polyethylene liner for a 36 head was placed. Attention was then turned to the femur. This was reamed and broached up to a size 11, at which point, the size 11 broach was stable. This was trialed with a high offset neck and a 36+0 head. Hip was reduced, taken through range of motion, found to be stable, found to be somewhat short on the left compared to the right. It was felt we could make up for this with the final implant. Hip was dislocated. Broach was removed and a final size 11 high offset Synergy stem was placed and seated. This was trialed with a 36+4 head. Hip was reduced, taken through range of motion, found to be stable, found to have equal leg lengths. Hip was dislocated, one last time and the trial head dressing was removed and final size 36+4 cobalt chrome head was then placed. Hip was reduced, taken through range of motion, found to be stable, found to have equal leg lengths. The hip was thoroughly irrigated with normal saline. A periarticular injection consisting of morphine, ropivacaine, epinephrine and Toradol was placed around the hip joint capsule. A gram of vancomycin was placed in the joint. Capsule and piriformis were repaired with 0 FiberWire. Fascia was closed with 0 Vicryl, skin was closed with 2-0 Vicryl, skin bridget and a KAILYN dressing was applied. The patient tolerated this procedure well and went to recovery room under care of anesthesia postoperatively. <ELECTRONICALLY SIGNED> By: Jose Chandra MD 04/16/19 0925 1728 1752 Jose Chandra MD /heather
== END 2019-04-04 14:30 | disposition home or self-care (01) | DRG 470 ==
LOC: PRE 06:46 → 4S 09:08 → TBA 09:08 → PRE 09:52 → 4S 13:08 → PRE 13:11 → ENTRNSPT 04-04 13:57 → EDTRNSPTSTS 04-04 14:01 → 4S 04-04 14:30
PROVIDERS: ADMIT Orthopaedic Surgery
PROC: 0SRB0JA Replacement of Left Hip Joint with Synthetic Substitute, Uncemented, Open Approach (ICD-10-PCS; principal; 2019-04-03)
DX: M16.12 Unilateral primary osteoarthritis, left hip (principal); I10 Essential (primary) hypertension; Z96.641 Presence of right artificial hip joint; E66.3 Overweight; I25.5 Ischemic cardiomyopathy; E78.5 Hyperlipidemia, unspecified; I73.9 Peripheral vascular disease, unspecified; I48.91 Unspecified atrial fibrillation; E03.9 Hypothyroidism, unspecified; G47.30 Sleep apnea, unspecified; Z79.899 Other long term (current) drug therapy; Z79.82 Long term (current) use of aspirin; Z68.36 Body mass index [BMI] 36.0-36.9, adult; Z95.1 Presence of aortocoronary bypass graft; Z90.49 Acquired absence of other specified parts of digestive tract; I25.2 Old myocardial infarction; Z85.46 Personal history of malignant neoplasm of prostate; Z92.3 Personal history of irradiation; Z95.0 Presence of cardiac pacemaker
CPT/HCPCS: 10102; 50010; 50101; 50382; 50414; 51412; 51771; 53000; 53078; 53367; 54118; 56524; 56527; 56528; 56530; 57095; 57103; 62110; 62900; 70005

== ENCOUNTER 2019-04-14 13:25 | Inpatient (IN) | payer OTHER ==
[~2019-04-14] VITALS: Ht 170.2 cm; Wt 109.5 kg
[2019-04-14 14:42] VITALS: BP 119/65
[2019-04-14 15:41] VITALS: BP 115/51
--- NOTE | 2019-04-14 15:41 | NUR ---
ORDERS RECEIVED FOR EVAL AND TREAT HOWEVER Pt WITH FRACTURE AROUND STEM OF THR AND WILL BE HAVING THR REVISION ON WEDNESDAY. WILL DEFER EVAL UNTIL AFTER POST-OP ORDERS RECEIVED
[2019-04-14 16:42] LABS: HEMATOCRIT 26.5 % (42.0-52.0); HEMOGLOBIN 8.9 gm/dL (14.0-18.0); MCHC 33.6 g/dL (28.0-37.0); MCV 98.1 fL (80.0-100.0); RBC 2.7 mil/uL (4.50-6.00); RDW 14.5 % (10.5-14.5); WBC 11.1 thou/uL (4.0-11.0)
[2019-04-14 17:00] LABS: % SATURATION 13 % (20-39); IRON 26 ug/dL (65-175); TIBC 207 ug/dL (250-450)
[2019-04-14 17:01] LABS: ALBUMIN 2.9 g/dL (3.4-5.0); CALCIUM 8.7 mg/dL (8.5-10.1); CREATININE 2.8 mg/dL (0.7-1.3); POTASSIUM 4.9 mmol/L (3.5-5.1); TOTAL PROTEIN 6.9 g/dL (6.4-8.2)
[2019-04-14 19:13] VITALS: BP 99/52
[2019-04-14 20:50] VITALS: BP 119/57
[2019-04-14 23:57] VITALS: BP 119/50
[2019-04-15 04:40] LABS: CALCIUM 8.5 mg/dL (8.5-10.1); CREATININE 2.7 mg/dL (0.7-1.3); MAGNESIUM 2.2 mg/dL (1.8-2.4); POTASSIUM 4.5 mmol/L (3.5-5.1)
[2019-04-15 05:00] VITALS: BP 129/57
--- NOTE | 2019-04-15 06:54 | NUR ---
Pt. slept well during the night. Medicated for pain at HS and again this am for left hip pain with good relief. He slept with his CPAP machine from home. Left hip has dressing ,clean,dry and intact. Used urinal. SCD's on for few hours last night then requested it off.Pt. wearing romi hose on both legs from home. Bed alarm for safety. Will continue to monitor.
[2019-04-15 07:15] VITALS: BP 124/56
[2019-04-15 16:14] VITALS: BP 120/53
--- NOTE | 2019-04-15 18:26 | NUR ---
PATIEN UP TO BATHROOM WITH W/C. HE IS ALERT ORIENTED X4. DENIES PAIN AT THIS TIME. RESPIRATIONS ARE EVEN NON LABORED. FAMILY HERE TO VISIT. WILL CONT WITH PLAN OF CARE.
[2019-04-15 20:12] VITALS: BP 120/56
[2019-04-16 04:36] VITALS: BP 141/70
--- NOTE | 2019-04-16 05:03 | NUR ---
SLEPT MOST OF SHIFT. REQUEST FOR PAIN MEDICATION FOR LEFT HIP PAIN NEEDED WITH NOTED RELIEF. WORKING ON GOALS AND PLAN OF CARE FOR NOC. PROGRESSING TOWARDS GOALS FOR SURGERY ON WEDNESDAY. CONTINUE TO ASSES CLOSELY.
[2019-04-16 06:20] LABS: CALCIUM 8.4 mg/dL (8.5-10.1); CREATININE 2.2 mg/dL (0.7-1.3); POTASSIUM 4.5 mmol/L (3.5-5.1)
[2019-04-16 07:19] VITALS: BP 143/62
--- NOTE | 2019-04-16 11:21 | EKG ---
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
[2019-04-16 11:50] LABS: FOLIC ACID 29.6 ng/mL (8.6-58.9)
[2019-04-16 15:16] VITALS: BP 125/621
--- NOTE | 2019-04-16 16:49 | NUR ---
PT WELL AWARE OF PROCEDURE TOMORROW. CONSENT SIGNED FOR BLOOD TRANSFUSION IF NEEDED. HE DOES NOT SEEM TO BE IN PAIN THIS AFTERNOON. RESTED IN BED THROUGH THE DAY. WILL CONT WITH PLAN OF CARE.
[2019-04-16 19:28] VITALS: BP 115/56
[2019-04-17] VITALS (8 sets, daily range): BP systolic 130–156; BP diastolic 60–101
[2019-04-17 05:41] LABS: HEMATOCRIT 23.8 % (42.0-52.0); MCH 33.3 pg (26.0-34.0); MCHC 33.6 g/dL (28.0-37.0); MCV 99.2 fL (80.0-100.0); RBC 2.4 mil/uL (4.50-6.00); RDW 14.7 % (10.5-14.5); WBC 8.7 thou/uL (4.0-11.0)
[2019-04-17 05:55] LABS: CALCIUM 8.7 mg/dL (8.5-10.1); CREATININE 1.8 mg/dL (0.7-1.3); MAGNESIUM 2.2 mg/dL (1.8-2.4); POTASSIUM 4.3 mmol/L (3.5-5.1)
--- NOTE | 2019-04-17 06:34 | NUR ---
all consents signed and on chart. pt is aware of plan for revision today. stated that he will do his bath during the day. he is aware that surgey is to be around 3 pm. careplan reviwed. hydrocodone effective for pain control.
--- NOTE | 2019-04-17 14:42 | NUR ---
INITIAL ASSESSMENT: SW reviewed chart and spoke with nursing and attending physician. Pt was admitted due to right hip fx. Pt currently off the unit having THR revision. Per chart, pt lives at home with his . Prior to admission, pt was using a walker at home following surgery. Pt's PCP is Dr. Montes. Therapy will evaluate pt after surgery to assist with recommendation for discharge needs. SW is following to assist as needed with discharge planning.
--- NOTE | 2019-04-17 19:56 | NUR ---
Assumed care approx. 0700 this AM. Patient taken to surgery approx. noon today and arrived back around 1700. Patient has KAILYN dressing and wound vac intact. Wound vac emptied times 1 with output of 80 ml; night nurse to empty rest of measurements. Abduction pillow and HUGH HOSE ordered. Post-op vitals started by URBAN SOCIOLOGIST's and will carry over to next shift. Maintenance fluid started and a hydrocodone administered for pain of a 10 rating. No nausea or vomiting. Patient's at bedside. Pt slowly progressing toward goals.
[2019-04-18 04:00] VITALS: BP 122/61
[2019-04-18 05:34] LABS: HEMATOCRIT 24.3 % (42.0-52.0); HEMOGLOBIN 8.1 gm/dL (14.0-18.0); MCH 32.2 pg (26.0-34.0); MCHC 33.2 g/dL (28.0-37.0); MCV 96.8 fL (80.0-100.0); RBC 2.51 mil/uL (4.50-6.00); RDW 15.4 % (10.5-14.5); WBC 12.5 thou/uL (4.0-11.0)
[2019-04-18 05:49] LABS: CALCIUM 8.1 mg/dL (8.5-10.1); CREATININE 1.9 mg/dL (0.7-1.3); POTASSIUM 4.7 mmol/L (3.5-5.1)
[2019-04-18 08:03] VITALS: BP 135/67
--- NOTE | 2019-04-18 12:13 | O ---
[facility] [place] [address] [place] [address] OPERATIVE REPORT Name: ABIMBOLA CHAMPION Room #: 360-[facility] IN M.R.#: [id number] Admission: 04/14/19 Attend Phys: Esequiel Montes MD Discharge: Date of : 39 Report #: [id number] THIS REPORT FOR: //name// CC: Esequiel Montes DATE OF SERVICE: 04/17/2019 PREOPERATIVE DIAGNOSIS: Left postop periprosthetic femur fracture, status post total hip arthroplasty. POSTOPERATIVE DIAGNOSIS: Left postop periprosthetic femur fracture, status post total hip arthroplasty. PROCEDURE: Revision left total hip arthroplasty with ORIF of a periprosthetic femur fracture stem only. SURGEON: Jose Chandra MD. RECOATER: Caridad Gonzalez PA-C. INDICATIONS FOR RECOATER: Throughout the case, extensive retraction and manipulation of the hip was required including dislocation and reduction. This was afforded to me by my corporate administrative assistant. ANESTHESIA: General. IMPLANTS: Hamilton and Nephew size 17 x 240 Redapt femoral stem with a size 36+0 cobalt chrome head and 3 Accord cables. ESTIMATED BLOOD LOSS: 500 mL. COMPLICATIONS: None. SPECIMENS: None. CONDITION UPON LEAVING THE OPERATING ROOM: Stable. INDICATIONS FOR PROCEDURE: The patient is a 78-year-old gentleman who is 2 weeks out from a left total hip arthroplasty, presented to the office on 04/14/2019 with increased pain in his hip and x-ray showed to have a fracture of his lesser trochanter with an unstable femoral stem. He was admitted to the hospital for stabilization and then after discussion with him and his family, they elected for revision left total hip arthroplasty on his femoral stem. DESCRIPTION OF PROCEDURE: Risks, benefits, alternatives, complications were discussed in detail with the patient including but not limited to risk of [facility] [address] [place] [address] OPERATIVE REPORT Name: ABIMBOLA CHAMPION Room #: 360-P [facility] IN M.R.#: [id number] Admission: 04/14/19 Attend Phys: Esequiel Montes MD Discharge: Date of : 39 Report #: [id number] anesthesia, risk of damage to nerves, arteries, blood vessels, risk for infection, bleeding, risk for continued hip pain, leg length discrepancy, instability and need for reoperation. Informed consent was obtained from the patient. The left hip was appropriately marked in the preoperative holding area. IV Ancef was given for preoperative antibiotics. He was brought to the operating room and placed in supine position on operating room table. LMA anesthesia was induced without complication. He was then placed in the right lateral decubitus position with the left hip uppermost. Left hip and lower extremity were prepped and draped in normal sterile fashion. Timeout was performed properly identifying the patient and procedure as well as the instrumentation and implants. All in the operating room were in agreement. The previous incision was used and extended distally with a 10 blade through the skin. Dissection was taken down to fascia with Bovie cautery distally and the fascia was opened easily. There was a large hematoma noted. This was evacuated. The capsular repair had been torn and the hip was dislocated. There was an obvious fracture of the lesser trochanter and the femoral stem was easily removed. Assessment of the lesser trochanteric fracture was then made and there was noted to be at least three separate fragments of the lesser trochanter and the calcar. It was decided to use a Redapt revision stem with distal fixation for the femoral implant. The femur was reamed up to a size 17. One cerclage cable was placed distal to the fracture line to ensure the propagation of the fracture would not have it. The head 17 femoral reamer was left in place and the proximal reamer was used to ream the greater trochanter. A trial stem was then built and this was trialed with a high offset and then a standard offset stem with a standard offset head had the best fit with a 36+0 head. X-ray was brought in and then a cross-table x-ray was taken to verify adequate still and fit with the stem and placement of hardware. We decided that we would fix the lesser trochanter fracture after placement of the final implant. Hip was dislocated and a final size 17 Redapt stem was placed. This was then trialed with a 36-4 head and 36+0 head had the best stability. Final size 36+0 cobalt chrome was placed. The hip was reduced, taken through range of motion, found to be stable. The lesser trochanter fracture was then held manually reduced and two cerclage cables were placed around the fracture, holding it in place. Final cross-table x-ray was taken and found to have good placement of hardware and reduction of the lesser trochanter fracture. The wound was thoroughly irrigated with normal saline. A gram of vancomycin was placed deep in the joint. A deep drain was placed. The fascia was closed with 0 Vicryl, skin was closed with 2-0 Vicryl, skin staple and a KAILYN dressing was applied. The patient tolerated this procedure well and went to the recovery room under care of anesthesia postoperatively. <ELECTRONICALLY SIGNED> By: Jose Chandra MD 04/18/19 1213 1953 11 Jose Chandra MD /nt
--- NOTE | 2019-04-18 13:45 | NUR ---
Received consult for discharge planning. SW reviewed chart. Pt is POD #1 of left hip revision. SW met with pt and at bedside. Introduced role of SW. Pt is alert/orientated x 4. Pt reports that he and his live in a one-level home. One step to enter the house from the garage and no steps inside. Pt has a walker at home from recent surgery. Pt was doing outpatient therapy in [facility]. SW discussed discharge needs. Pt is hopeful that he can go home and either have HH or resume outpatient therapy. SW provided in-network SNF list for review. Pt's PCP is Dr. Montes. SW is following to assist as needed with discharge planning.
[2019-04-18 17:27] VITALS: BP 139/61
--- NOTE | 2019-04-18 17:55 | NUR ---
Shift summary: Neuro intact. Pain better controlled after switching hydrocodone and oxycodone to 10mg/325mg q 4hr (Ok to alternate q 2 hr) in addition to Morphine 15mg ER BID. VSS. SR 1st degree AV block. Room air. Lungs clear. IS 2250. Up in chair most of day, worked with OT and PT. Tolerating diet. Did not drink any supplements, does not like. Hemovac drain left hip removed after removing sx. Tolerated well. Left hip incision intact w/ KAILYN wound vac. Ice bags to site x 48 hrs. Voiding per urinal qs. Pt's at bedside most of day supportive. Pt's favors transfer to rehab facility prior to returning home after this second surgery/revision. Plan of care reviewed and updated as able. Pt progressing towards discharge goals.
[2019-04-18 20:05] VITALS: BP 122/65
[2019-04-19 04:10] VITALS: BP 115/69
[2019-04-19 05:02] LABS: HEMATOCRIT 24.9 % (42.0-52.0); HEMOGLOBIN 8.4 gm/dL (14.0-18.0); MCH 32.5 pg (26.0-34.0); MCHC 33.6 g/dL (28.0-37.0); MCV 96.7 fL (80.0-100.0); RBC 2.58 mil/uL (4.50-6.00); RDW 15.5 % (10.5-14.5); WBC 10.5 thou/uL (4.0-11.0)
--- NOTE | 2019-04-19 06:37 | NUR ---
SLEPT MOST OF SHIFT. STATES SLEPT THE BEST LAST NOC. DENIES NEED FOR PAIN MEDICATION AT THIS TIME. PAIN MORE CONTROLLED THIS SHIFT. WORKING ON GOALS AND PLAN OF CARE FOR NOC. PROGRESSING SLOWLY TOWARDS DISCHARGE GOALS TO SKILLED. CONTINUE TO ASSES CLOSLY.
[2019-04-19 07:55] VITALS: BP 98/57
--- NOTE | 2019-04-19 13:11 | NUR ---
ASSUMED CARE OF PT AT 0700. PT ALERT AND ORIENTED X4 REPORTS PAIN IMPROVING WITH CURRENT MED REGIMEN. PREMEDICATED BEFORE WORKING WITH PHYSICAL THERAPY. UP TOLERATED - UP TO CHAIR WITH MEALS. CALLS OUT APPROPRIATELY. WILL CONT TO MONITOR.
--- NOTE | 2019-04-19 14:01 | NUR ---
SW reviewed chart and spoke with nursing and attending physician. Pt is slowly progressing towards goals for discharge. SW met with pt at bedside to discuss post-acute plans. Pt states that he will need to go to a facility for continued rehab prior to returning home. SW explained need for insurance authorization for placement. Pt verbalized understanding. Pt is waiting for his to come to the hospital to discuss. Pt provided with FREDDY's contact number. SW is following to assist as needed with discharge planning.
[2019-04-19 15:54] VITALS: BP 117/60
[2019-04-19 20:50] VITALS: BP 107/62
--- NOTE | 2019-04-20 02:53 | NUR ---
ASSESSMENT: PT REMAIN ALERT AND ORIENT TIMES THREE. HAS NOT GOTTEN ANY PAIN MEDS BESIDES SCHEDULED MS. ABDUCTOR PILLOW APPLIED WHILE IN BED, PT TOLERATING WELL. WAS AT THE BEDSIDE AT THE BEGINNING OF THE SHIFT. VSS, AFEBRILE. WBAT TO THE BATHROOM. A-PACED/SR PER MONITOR. NO COMPLAINTS THIS SHIFT. PT SLEPT WELL DURING THE NIGHT. PECO DRESSING INTACT. WILL CONTINUE TO MONITOR.
[2019-04-20 04:15] VITALS: BP 101/55
[2019-04-20 05:46] LABS: HEMATOCRIT 22.3 % (42.0-52.0); HEMOGLOBIN 7.5 gm/dL (14.0-18.0); MCHC 33.7 g/dL (28.0-37.0); MCV 98.1 fL (80.0-100.0); RBC 2.28 mil/uL (4.50-6.00); RDW 15.7 % (10.5-14.5); WBC 8.2 thou/uL (4.0-11.0)
[2019-04-20 07:46] VITALS: BP 125/59
--- NOTE | 2019-04-20 10:23 | NUR ---
Nutrition: Pt assessed for early day 6 LOS. Admit: L periprosthetic femur fracture. Is s/p L hip revision surgery on 04/17. Hx CHF. Following surgery, has been on a 2 g Na diet for several days. No meals recorded for 04/19, but on day 1 back to solid PO ate 75-100% of all meals. At visit, he denies any nutrition concerns. Reports a normal appetite. States keeps very close tabs on his low Na diet at home and also restricts portions when appropriate. Weighs self daily. States "If I go up a lb, I make sure it comes off the next day." On a scheduled bowel regimen and reglan here. He denies any nutrition questions, education or intervention needs. Low nutrition risk.
--- NOTE | 2019-04-20 10:34 | NUR ---
FREDDY reviewed chart and spoke with nursing. Pt is progressing towards goals for discharge. SW met with pt at bedside to discuss discharge plan. Pt states he should be discharged today. PT to work with pt regarding discharge disposition. FREDDY explained that insurance would need to authorize post-acute placement. Therapy has recommended home with HH or Outpatient therapy. Pt's to be at the hospital later today. Pt is agreeable with HH if recommended. SW confirmed pt's home address/phone number. HH providers discussed with pt. No preference voiced. FREDDY is following to assist as needed with discharge planning.
--- NOTE | 2019-04-20 14:01 | NUR ---
DISCHARGE PLANNING. POST ACUTE RECOMMENDED AT DISCHARGE. PATIENT REFERRAL FAXED TO [facility] PER REQUEST. CALL PLACED TO [facility] TO FOLLOW UP ON PATIENT REFERRAL. SPOKE WITH PATRIC. [facility] STATES CLINICAL TEAM TO REVIEW REFERRAL AND WILL NOTIFY CM ONCE REVIEW IS COMPLETE. UNIT SW NOTIFIED. FOLLOWING.
[2019-04-20 15:52] VITALS: BP 114/57
--- NOTE | 2019-04-20 16:24 | NUR ---
ASSUMED CARE OF PT AT 0700. PT ALERT AND ORIENTED X4. PAIN WELL CONTROLLED. FAMILY CONCERNED ABOUT OVERMEDICATION - ASKING TO HOLD SCHEDULED DOSE. PRN DOSE GIVEN BEFORE PHYSICAL THERAPY. ANTICIPATING D/C TOMORROW.
[2019-04-20 19:20] VITALS: BP 129/56
--- NOTE | 2019-04-21 01:53 | NUR ---
PATIENT IS ADVANCING IN HIS CARE PLAN. VITAL SIGNS STABLE WITH PATIENT HAVING NO COMPLAINTS OF NAUSEA. PATIENT DID COMPLAIN OF PAIN IN LEFT HIP WHICH WAS TREATED EFFECTIVELY THROUGH MEDICATION AND REPOSITIONING. FULLY ALERT AND ORIENTED, PATIENT IS ABLE TO CALL APPROPRIATELY FOR NEEDS AND PARTICIPATE FULLY IN CARE PLAN. SURGICAL DRESSING C/D/I. AROUND 0100 PATIENT BECAME RESTLESS AND WAS UNWILLING TO KEEP HIP ABDUCTOR IN PLACE. NURSE TO ATTEMPT TO TALK PATIENT INTO LETTING STAFF REPLACE IT. PROBABLE DISCHARGE TO REHAB TODAY. CONTINUE PLAN OF CARE.
[2019-04-21 04:05] VITALS: BP 113/64
[2019-04-21 07:31] VITALS: BP 122/54
[2019-04-21 09:14] LABS: HEMOGLOBIN 7.9 gm/dL (14.0-18.0); MCH 32.1 pg (26.0-34.0); MCHC 32.9 g/dL (28.0-37.0); MCV 97.6 fL (80.0-100.0); RBC 2.46 mil/uL (4.50-6.00); RDW 15.8 % (10.5-14.5); WBC 7.7 thou/uL (4.0-11.0)
[2019-04-21 09:34] LABS: CALCIUM 8.8 mg/dL (8.5-10.1); CREATININE 1.8 mg/dL (0.7-1.3); POTASSIUM 4.5 mmol/L (3.5-5.1)
--- NOTE | 2019-04-21 12:35 | NUR ---
SW reviewed chart and spoke with nursing. Pt is medically stable for discharge to post-acute care. [facility] is able to accept pt. Awaiting insurance authorization at this time. FREDDY is following to assist as needed with discharge planning.
[2019-04-21 15:42] VITALS: BP 98/50
--- NOTE | 2019-04-21 18:07 | NUR ---
NO CHANGES TO REPORT. PENDING INSURANCE AUTH FOR D/C. PT DOING WELL, VOICING NO CONCERNS.
[2019-04-21 19:49] VITALS: BP 121/54
--- NOTE | 2019-04-22 02:47 | NUR ---
PATIENT IS PROGRESSING IN HIS CARE PLAN AND ANXIOUS FOR DISCHARGE TO REHAB FACILITY. VITAL SIGNS STABLE WITH PATIENT HAVING NO COMPLAINTS OF NAUSEA. PATIENT DID COMPLAIN OF PAIN IN LEFT HIP AND WAS TREATED EFFECTIVELY THROUGH MEDICATION AND REPOSITIONING. FULLY ORIENTED, PATIENT IS ABLE TO CALL FOR NEEDS EFFECTIVELY AND PARTICIPATE FULLY IN CARE. PATIENT DID BECOME UNCOMFORTABLE IN HIP ABDUCTOR AND DID REQUEST ITS REMOVAL AROUND 0100. CONTINUE PLAN OF CARE.
[2019-04-22 04:03] VITALS: BP 1255/62
[2019-04-22 07:25] VITALS: BP 127/60
[2019-04-22 15:46] VITALS: BP 103/48
--- NOTE | 2019-04-22 16:16 | NUR ---
Assumed care approx. 0700 this AM. No new changes. Pt waiting on insurance auth for rehab at [facility]. Pt worked with physical therapy today and tolerated well. No PRN pain meds administered up to this point- only the scheduled morphine tablet. Left hip with KAILYN dressing still C/D/I. Varghese yeung present. Pt resting comfortably in chair most of the shift. Pt progressing toward plan of care goals.
[2019-04-22 19:38] VITALS: BP 99/51
--- NOTE | 2019-04-23 03:08 | NUR ---
Patient progressing well towards outcome goals. Vital signs and rhythm stable. High fall risks, fall precautions in place. Uses call light appropriately for needs. Good pain control with oral morphine but patients spouse has expressed concern over discharging with this medication. Will pass on to day nurse to address with surgeon. Up x 1 assist with walker. Abductor pillow in place while in bed. Up in chair at this time. Awaiting insurance approval for rehab.
[2019-04-23 03:15] VITALS: BP 124/58
[2019-04-23 07:56] VITALS: BP 122/67
--- NOTE | 2019-04-23 15:39 | NUR ---
CALLED REPORT TO [facility]. WILL TRNASFER PT TO ROOM 450.
[2019-04-23 16:50] VITALS: BP 135/60
--- NOTE | 2019-04-23 17:10 | NUR ---
ASSUMED CARE OF PATIENT APPROX 1630, VSS, PAIN IN LEFT HIP. PAIN MEDICATION GIVEN. KAILYN DRESSING C/D/I. SKIN APPROPRIATE FOR COLOR, SENSATION FELT, CAP REFILL APPROPRIATE. NO SIGNS OF DISTRESS. AT BEDSIDE. WILL CONTINUE TO MONITOR.
[2019-04-23 19:30] VITALS: BP 135/72
--- NOTE | 2019-04-24 02:23 | NUR ---
ASSUMED CARE OF PT AT 1900HRS. PT IS AOX4 AND LETS NEEDS BE KNOWN. FALL PRECAUTION IN PLACE. PT IS POST OP DAY 4 AND SURGICAL KAILYN DRESSING IS C/D/I. PT REPORTED SOME PAIN AND WAS TREATED WITH PRN PAIN MEDS. VSS AND NO S/S OF ACUTE DISTRESS. WILL CONTINUE TO MONITOR.
[2019-04-24 08:23] VITALS: BP 124/58
[2019-04-24 09:00] VITALS: BP 124/58
--- NOTE | 2019-04-24 16:09 | NUR ---
assumed care of pt at 0700, pt is a/o times four. denies pain or discomfort. vss and pt has been afibrile. [id number] rcvd to dc pt. report called to asccepting facility and all questions aqnswered. bfamily member at bedside and is aware of discharge.
== END 2019-04-24 16:51 | DRG 466 ==
LOC: 3W 13:25 → 4W 04-23 16:03
PROVIDERS: Internal Medicine; Nurse Practitioner; Nurse Practitioner Gerontology; Orthopaedic Surgery; ADMIT Family Medicine
PROC: 5A09357 Assistance with Respiratory Ventilation, Less than 24 Consecutive Hours, Continuous Positive Airway Pressure (ICD-10-PCS; principal; 2019-04-14)
PROC: 30233N1 Transfusion of Nonautologous Red Blood Cells into Peripheral Vein, Percutaneous Approach (ICD-10-PCS; 2019-04-17)
PROC: 0QS704Z Reposition Left Upper Femur with Internal Fixation Device, Open Approach (ICD-10-PCS; 2019-04-17)
PROC: 0SRS01Z Replacement of Left Hip Joint, Femoral Surface with Metal Synthetic Substitute, Open Approach (ICD-10-PCS; 2019-04-17)
PROC: 0SPS0JZ Removal of Synthetic Substitute from Left Hip Joint, Femoral Surface, Open Approach (ICD-10-PCS; 2019-04-17)
DX: T84.84XA Pain due to internal orthopedic prosthetic devices, implants and grafts, initial encounter (principal); N17.0 Acute kidney failure with tubular necrosis; I50.22 Chronic systolic (congestive) heart failure; N17.9 Acute kidney failure, unspecified; I47.2 Ventricular tachycardia; D68.59 Other primary thrombophilia; I13.0 Hypertensive heart and chronic kidney disease with heart failure and stage 1 through stage 4 chronic kidney disease, or unspecified chronic kidney disease; M97.02XA Periprosthetic fracture around internal prosthetic left hip joint, initial encounter; E78.5 Hyperlipidemia, unspecified; I73.9 Peripheral vascular disease, unspecified; E03.9 Hypothyroidism, unspecified; I25.10 Atherosclerotic heart disease of native coronary artery without angina pectoris; I25.5 Ischemic cardiomyopathy; Z85.46 Personal history of malignant neoplasm of prostate; G47.33 Obstructive sleep apnea (adult) (pediatric); I48.0 Paroxysmal atrial fibrillation; Z96.649 Presence of unspecified artificial hip joint; I35.0 Nonrheumatic aortic (valve) stenosis; N18.3 Chronic kidney disease, stage 3 (moderate); E86.9 Volume depletion, unspecified; D63.8 Anemia in other chronic diseases classified elsewhere; Z95.1 Presence of aortocoronary bypass graft; I25.2 Old myocardial infarction; Z95.5 Presence of coronary angioplasty implant and graft; Z90.49 Acquired absence of other specified parts of digestive tract; Z95.0 Presence of cardiac pacemaker; Z82.49 Family history of ischemic heart disease and other diseases of the circulatory system; Z82.0 Family history of epilepsy and other diseases of the nervous system
CPT/HCPCS: 10040; 10045; 10879; 50010; 50101; 50382; 50414; 51057; 51130; 51225; 51226; 51412; 51771; 53078; 54118; 55389; 56460; 56524; 56528; 56530; 57095; 57103; 62110; 62900; 65090; 70005

== ENCOUNTER → 2019-08-09 | Outpatient (CLI) | payer MEDICARE | LOC: SJCVC 10:58 | DX: R94.31 Abnormal electrocardiogram [ECG] [EKG] (principal); I44.0 Atrioventricular block, first degree; I45.4 Nonspecific intraventricular block; I25.10 Atherosclerotic heart disease of native coronary artery without angina pectoris; I50.22 Chronic systolic (congestive) heart failure; I25.5 Ischemic cardiomyopathy; I10 Essential (primary) hypertension; E78.5 Hyperlipidemia, unspecified; I65.23 Occlusion and stenosis of bilateral carotid arteries; I47.2 Ventricular tachycardia; I48.0 Paroxysmal atrial fibrillation; G47.33 Obstructive sleep apnea (adult) (pediatric) ==

== ENCOUNTER → 2019-08-10 | Outpatient (CLI) | payer MEDICARE | LOC: SJCVC 13:45 | DX: R94.31 Abnormal electrocardiogram [ECG] [EKG] (principal); I44.0 Atrioventricular block, first degree; I47.2 Ventricular tachycardia; I48.0 Paroxysmal atrial fibrillation; I25.5 Ischemic cardiomyopathy; Z95.810 Presence of automatic (implantable) cardiac defibrillator ==

== ENCOUNTER → 2019-11-10 | Outpatient (CLI) | payer MEDICARE | LOC: SJCVC 11:20 | PROVIDERS: ATTEND Internal Medicine | DX: I45.4 Nonspecific intraventricular block (principal); R94.31 Abnormal electrocardiogram [ECG] [EKG]; I25.810 Atherosclerosis of coronary artery bypass graft(s) without angina pectoris; I11.0 Hypertensive heart disease with heart failure; I50.22 Chronic systolic (congestive) heart failure; I25.5 Ischemic cardiomyopathy; E78.5 Hyperlipidemia, unspecified; I65.23 Occlusion and stenosis of bilateral carotid arteries; I47.2 Ventricular tachycardia; I48.0 Paroxysmal atrial fibrillation; G47.33 Obstructive sleep apnea (adult) (pediatric); E78.00 Pure hypercholesterolemia, unspecified; Z95.1 Presence of aortocoronary bypass graft; Z79.899 Other long term (current) drug therapy; Z82.49 Family history of ischemic heart disease and other diseases of the circulatory system ==

== ENCOUNTER → 2020-05-16 | Outpatient (CLI) | payer OTHER | LOC: SJCVCIMAG 08:43 | PROVIDERS: ATTEND Internal Medicine | DX: I08.3 Combined rheumatic disorders of mitral, aortic and tricuspid valves (principal); I44.0 Atrioventricular block, first degree; I45.4 Nonspecific intraventricular block; R94.31 Abnormal electrocardiogram [ECG] [EKG]; I25.10 Atherosclerotic heart disease of native coronary artery without angina pectoris; I13.0 Hypertensive heart and chronic kidney disease with heart failure and stage 1 through stage 4 chronic kidney disease, or unspecified chronic kidney disease; I50.22 Chronic systolic (congestive) heart failure; N18.32 Chronic kidney disease, stage 3b; I25.5 Ischemic cardiomyopathy; I48.0 Paroxysmal atrial fibrillation; E78.5 Hyperlipidemia, unspecified; I65.23 Occlusion and stenosis of bilateral carotid arteries; I47.1 Supraventricular tachycardia; G47.33 Obstructive sleep apnea (adult) (pediatric); Z95.1 Presence of aortocoronary bypass graft; Z79.899 Other long term (current) drug therapy ==

== ENCOUNTER 2021-04-27 12:48 | Inpatient (IN) | payer OTHER ==
[~2021-04-27] VITALS: Ht 167.6 cm; Wt 112.4 kg
[2021-04-27 12:53] VITALS: BP 133/67
[2021-04-27 13:17] LABS: BASOPHILS 0.4 % (0.0-2.0); EOSINOPHILS 1.2 % (0.0-3.0); HEMATOCRIT 30.8 % (42.0-52.0); LYMPHOCYTES 9.3 % (24.0-44.0); MCH 33.4 pg (26.0-34.0); MCHC 32.6 g/dL (28.0-37.0); MCV 102.5 fL (80.0-100.0); MONOCYTES 14.2 % (1.0-8.0); PLATELET COUNT 149 thou/uL (150-400); POLYS 74.9 % (36.0-66.0); RDW 15.4 % (10.5-14.5); WBC 6.7 thou/uL (4.0-11.0)
[2021-04-27 13:30] LABS: CALCIUM 8.1 mg/dL (8.5-10.1); CREATININE 2.1 mg/dL (0.7-1.3); POTASSIUM 4.6 mmol/L (3.5-5.1)
[2021-04-27 13:40] LABS: ALBUMIN 3.3 g/dL (3.4-5.0); TOTAL PROTEIN 6.4 g/dL (6.4-8.2)
--- NOTE | 2021-04-27 14:30 | NUR ---
RT CALLED TO INQUIRE ABOUT THE ORDERED BREATHING TREATMENT
[2021-04-27 15:01] VITALS: BP 133/67
[2021-04-27 15:36] VITALS: BP 133/67
[2021-04-27 16:08] VITALS: BP 121/57
--- NOTE | 2021-04-27 18:22 | NUR ---
Pt is a new admit from ED. Pt is A & O x4. Pt VS stable. pt is NSR on the tele. Pt is on 2L of 02 per nasal cannula. Pt is SBA with cares and ADLs. Pt is able to make needs known.
[2021-04-27 21:12] VITALS: BP 117/67
[2021-04-27 23:57] VITALS: BP 131/61
[2021-04-28 04:42] LABS: CALCIUM 8.1 mg/dL (8.5-10.1); CREATININE 2.1 mg/dL (0.7-1.3)
[2021-04-28 04:59] LABS: POTASSIUM 4.6 mmol/L (3.5-5.1)
[2021-04-28 05:16] VITALS: BP 147/82
--- NOTE | 2021-04-28 07:39 | NUR ---
Assumed pt care at 1900. A/OX4,VSS. Has dyspnea on exertion,on O2 @ 2L/NC. Up with SBA/cane,voiding per urinal at NOC. Denies pain on assessment. contacted nad breathing tx ordered for pt @HS. SR on telemetry. Resting w/o distress noted.
[2021-04-28 08:11] VITALS: BP 132/81
--- NOTE | 2021-04-28 09:02 | EKG ---
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 : 1940 Requested By: Adolfo Graham Order Number: [id number] MD: Byron Holbrook Measurements Intervals [place] Rate: 74 P: -3 NY: 252 QRS: -12 QRSD: 119 T: -2 QT: 418 QTc: 464 Interpretive Statements Sinus rhythm Prolonged [place] interval Nonspecific intraventricular conduction delay Probable inferior infarct, age indeterminate Compared to ECG 04/14/2019 16:56:30 No significant changes found Electronically Signed On 04-28-2021 9:02:30 [employer] by Byron Holbrook [email or web address] <ELECTRONICALLY SIGNED> By: Byron Holbrook MD, [facility] 04/28/21 0902 130 00 Byron Holbrook MD, [facility] /EPI
[2021-04-28 12:43] VITALS: BP 100/55
--- NOTE | 2021-04-28 13:42 | 2DMMODE ---
[facility] [place] [address] 2 D/M-MODE ECHOCARDIOGRAM Name: ABIMBOLA CHAMPION Room #: 459-P ADM IN M.R.#: [id number] Admission: 04/27/21 Attend Phys: Esequiel Montes MD Discharge: Date of : 38 Report #: [id number] THIS REPORT FOR: cc: Esequiel Montes MD, Neal A. MD Lundgren, Craig H. MD [facility] ~ APPROVED REPORT Study performed: 04/28/2021 11:28:58 EXAM: Comprehensive 2D, Doppler, and color-flow Echocardiogram Patient Location: Bedside Room #: 459 Status: routine BSA: 2.17 HR: 77 bpm BP: 132/81 mmHg Rhythm: Pacemaker Other Information Study Quality: Good Indications Congestive Heart Failure Atrial Fibrillation Dyspnea CAD Cardiomyopathy Hypertension/HDD CABG 2D Dimensions RVDd: 50.86 mm IVSd: 9.53 (7-11mm) LVOT Diam: 21.65 (18-24mm) LVDd: 70.33 mm PWd: 11.30 (7-11mm) Ascending Ao: 36.08 (22-36mm) LVDs: 61.94 (25-40mm) Aortic Root: 33.00 mm IVC: 27.00 mm Volumes Left Atrial Volume (Systole) Single Plane 4CH: 137.78 mL Single Plane 2CH: 132.02 mL LA ESV Index: 69.00 mL/m2 [facility] [employer] [address] [place] [address] 2 D/M-MODE ECHOCARDIOGRAM Name: ABIMBOLA CHAMPION Room #: 459-P ADM IN M.R.#: [id number] Admission: 04/27/21 Attend Phys: Esequiel Montes, Discharge: Date of : 38 Report #: [id number] Aortic Valve AoV Peak Ab.: 3.68 m/s AO Peak Gr.: 54.03 mmHg LVOT Max P.53 mmHg AO Mean Gr.: 31.09 mmHg LVOT Mean P.98 mmHg AO V2 Mean: 2.59 m/s LVOT Max V: 0.94 m/s AO V2 VTI: 92.01 cm LVOT Mean V: 0.66 m/s YADIEL (VTI): 1.02 cm2 LVOT V1 VTI: 25.40 cm YADIEL Vmax: 0.94 cm2 AI Vmax: 2.99 m/s SV (LVOT): 93.42 mL AI [place]: 1.69 m/s2 AI PHT: 513.32 ms Mitral Valve E/A Ratio: 1.4 MV Decel. Time: 217.01 ms MV E Max Ab.: 1.13 m/s MV A Ab.: 0.79 m/s MV PHT: 62.93 ms IVRT: 106.11 ms Pulmonary Valve PV Peak Ab.: 1.36 m/s PV Peak Gr.: 7.38 mmHg Pulmonary Vein P Vein S: 0.68 m/s P Vein A: 0.24 m/s P Vein D: 0.42 m/s P Vein A Dur.: 106.1 msec P Vein S/D Ratio: 1.62 Tricuspid Valve TR Peak Ab.: 2.62 m/s TR Peak Gr.: 27.56 mmHg PA Pressure: 38.00 mmHg Left Ventricle Left ventricle is dilated. There is normal left ventricular wall thickness. Left ventricular systolic function is moderately decreased. LVEF is 45%. Akinesis base of the septum and inferior prasad This study is not technically sufficient to allow evaluation of the LV diastolic function. Right Ventricle The right ventricle is normal size. Right ventricular systolic function is grossly normal. Device lead is present in the right ventricle. [facility] [address] [place] [address] 2 D/M-MODE ECHOCARDIOGRAM Name: ABIMBOLA CHAMPION Room #: 459-P [facility] IN .R.#: [id number] Admission: 04/27/21 Attend Phys: Esequiel Montes, Discharge: Date of : 38 Report #: [id number] Left atrium is dilated. Device lead is present in the right atrium. Aortic Valve Aortic valve is heavily calcified, trileaflet. Moderate stenosis (peak gradient 54 mm Hg, mean gradient 31 mm) Mild aortic regurgitation. Moderate to moderately severe aortic stenosis. Mitral Valve The mitral valve is normal in structure. Severe mitral regurgitation. No evidence of mitral valve stenosis. Tricuspid Valve The tricuspid valve is normal in structure. There is trace to mild tricuspid regurgitation. Estimated PAP 38 mmHg. There is mild pulmonary hypertension. Pulmonic Valve The pulmonary valve is normal in structure. There is no pulmonic valvular regurgitation. Great Vessels The aortic root is normal in size. IVC is dilated and collapses >50% with inspiration. Pericardium There is no pericardial effusion. <Conclusion> Left ventricular systolic function is moderately decreased. LVEF is 45%. Akinesis base of the septum and inferior prasad Left atrium is dilated. Aortic valve is heavily calcified, trileaflet. Moderate stenosis (peak gradient 54 mm Hg, mean gradient 31 mm) Mild aortic regurgitation. Moderate to moderately severe aortic stenosis. The mitral valve is normal in structure. Severe mitral regurgitation. There is trace to mild tricuspid regurgitation. Estimated pulmonary artery pressure of 38 mmHg. There is no pericardial effusion. <ELECTRONICALLY SIGNED> By: Byron Holbrook MD, FACC 04/28/211341 41 41 Byron Holbrook MD, FACC /INF
[2021-04-28 15:57] VITALS: BP 95/53
--- NOTE | 2021-04-28 16:17 | NUR ---
PT ADMITTED RELATED TO CHF EXACERBATION. CM REVIEWED CHART AND SPOKE WITH CARE TEAM. CM MET WITH PT AND SPOUSE AT BEDSIDE THIS DAY. PT APPEARED TO BE A&O X4. CM ROLE INTRODUCED. PT INDICATED HE AND SPOUSE RESIDE IN A HOUSE WITH 2 STEPS TO ENTER AND NO STEPS INSIDE THAT PT USES. PT INDICATED ALL NEEDS ON 1 LEVEL. PT INDICATED HE HAS A FWW AND A CANE FOR HOME USE. PT HAD A CPAP BUT IT WAS RECENTLY RECALLED HE HAD GOTTEN IT THROUGH HOME MED[facility] SUP[facility]Y AND HAD PAID PRIVATLY. DR. SANCHEZ INIDCATED THAT PT WILL LIKELY BE DC READY IN 1-2 DAYS. CM FOLLOWING REGARDING DC PLANNING.
[2021-04-28 20:13] VITALS: BP 134/59
--- NOTE | 2021-04-29 05:14 | NUR ---
Assumed pt care at 1900. A/OX4,VSS. Up with SBA/cane. C/o pain to right ankle which he stated could be gout which he has a hx of as well as twitching;he'll relay to the Dr in am. Does have dyspnea on exertion, on O2@2L/NC. Continent of B&B. SR/1DAVB on telemetry. Will continue to monitor pt
[2021-04-29 05:22] LABS: CALCIUM 8.6 mg/dL (8.5-10.1); CREATININE 2.5 mg/dL (0.7-1.3); POTASSIUM 5.2 mmol/L (3.5-5.1)
[2021-04-29 05:36] VITALS: BP 115/69
[2021-04-29 07:00] VITALS: BP 109/63
[2021-04-29 08:28] LABS: % SATURATION 10 % (20-39); IRON 26 ug/dL (65-175); TIBC 259 ug/dL (250-450)
--- NOTE | 2021-04-29 10:54 | NUR ---
PT WORKED WITH PT THIS AM AND INDICATED THAT HE WAS ON HIS 2L WITH AMBULATION AND SATS DROPPED TO 89% AFTER WALK BUT NONA QUICKLY WITH REST. CM NOTIFIED DR. SANCHEZ AND INDICATED THAT PT DOESN'T HABE ANY HOME O2, CPAP, OR NEUBLIZER AT THIS TIME. JAYLON SANCHEZ INDICATED PT MAY NEED EXERCISE OX TESTING PRIOR TO POSSIBLE DC TOMORROW. CM FOLLOWING REGARDING DC PLANNING.
[2021-04-29 18:20] VITALS: BP 110/55
--- NOTE | 2021-04-29 19:37 | NUR ---
Assumed pt care at 7am. Pt in and out of bed with assist. Assessment completed vss.Pt has cough spells during breakfast and was encouraged to eat slowly. Meds given and well tolerated. Dr Montes here,order noted.Pt here,updates given.Pt ambulated in hallways this afternoon with therapist.Good endurance noted.Pt in bed resting at present. Will continue to monitor.
[2021-04-29 19:45] VITALS: BP 96/60
[2021-04-29 23:35] VITALS: BP 102/57
--- NOTE | 2021-04-30 04:00 | NUR ---
PT ON /, SOME WHEEZING NOTED, RT TREATMENTS GIVEN WITH RELIEF.USING URINAL.HOB ELEVATED.REPORTS FEELING BETTER.
[2021-04-30 06:21] LABS: CALCIUM 8.1 mg/dL (8.5-10.1); CREATININE 3.5 mg/dL (0.7-1.3); POTASSIUM 5.3 mmol/L (3.5-5.1)
[2021-04-30 07:34] VITALS: BP 92/50
--- NOTE | 2021-04-30 15:25 | NUR ---
PT WORKED WITH PT AND INDICATED THAT PT WILL LIKELY BE ABLE TO RETURN HOME SAFTELY ONCE MEDICALLY STABLE. PT ON 1L O2 AND NEEDED BREATHING TREATMENT YESTERDAY EVENING. CM FOLLOWING REGARDING DC PLANNING.
--- NOTE | 2021-04-30 15:33 | NUR ---
ASSUMED PT CARE AT 1300. PATIENT A&OX4 AND ABLE TO MAKE NEEDS KNOWN. PATIENT ON ROOM AIR. IV STARTED TO RIGHT FOREARM. PATIENT AMBULATORY WITH ASSIST. FALL PRECAUTIONS ARE IN PLACE, CALL LIGHT WITHIN REACH.
[2021-04-30 16:53] VITALS: BP 97/54
[2021-04-30 21:12] VITALS: BP 109/60
[2021-04-30 23:54] VITALS: BP 105/63
[2021-05-01 03:41] VITALS: BP 95/60
--- NOTE | 2021-05-01 04:55 | NUR ---
ASSUMED PT CAR ETHIS PM. PT IS ALERT AND ORIENTED X4. PT IS ON 2L OF 02 VIA NC.PT DID NOT C/O SOB OR ANY FORM OF PAIN. PT WAS PLEASNT AND APPROPRIATE. MEDS WERE GIVEN PER EMAR ORDERS. PT DID NOT VERBALIZE ANY CONCERNS. FALL PRECAUTIONS IN PLACE. WILL CONTINUE TO MONITOR.
[2021-05-01 05:55] LABS: CALCIUM 8.3 mg/dL (8.5-10.1); CREATININE 3.6 mg/dL (0.7-1.3); POTASSIUM 5.3 mmol/L (3.5-5.1)
[2021-05-01 07:50] VITALS: BP 107/65
--- NOTE | 2021-05-01 13:36 | NUR ---
Pt triggered for excessive BMI 10.6, extreme class III obesity. Pt admitted with SOB, coughing, non-covid related. Exacerbation of CHF noted, pt with long hx. Dx bronchitis this admit as well. On steroids and diuretics, ABT. Cough improving. Intakes 100% on heart healthy diet. Pt denies any education needs at this time. Place at low nutrition risk.
--- NOTE | 2021-05-01 15:12 | NUR ---
ASSUMED PT CARE THIS AM. PT A&OX4, ABLE TO MAKE NEEDS KNOWN. PATIENT ON 2 LITERS OF OXYGEN. PATIENT IV REMAINS PATENT. MEDICATIONS GIVEN WITHOUT ISSUE. PATIENT DENIES PAIN. FALL PRECAUTIONS ARE IN PLACE, CALL LIGHT WITHIN REACH.
--- NOTE | 2021-05-01 16:15 | NUR ---
CARE TEAM INDICATED THAT PT WILL LIKELY BE DC READY TOMORROW. PT STILL ON 2L O2. CM FOLLOWING REGARDING DC PLANNING.
[2021-05-01 19:36] VITALS: BP 112/60
[2021-05-02 00:46] VITALS: BP 101/54
[2021-05-02 04:29] VITALS: BP 113/54
[2021-05-02 04:37] LABS: CREATININE 3.5 mg/dL (0.7-1.3); POTASSIUM 5.7 mmol/L (3.5-5.1)
--- NOTE | 2021-05-02 04:53 | NUR ---
ASSUMED PT CARE CARE THIS PM. PT IS ALERT AND ORINETED X4. PT IS ON 2L OF O2 VIA NC. VS ARE WITH NORMAL RANGE.MEDS WERE GIVEN PER EMAR ORDERS. PT DID NOT C/O OF PAIN OR SOB. NO VISIBLE SIGN OF DISTRESS WAS NOTED. FALL PRECAUTION IN PLACE. WILL CONTINUE TO MONITOR.
[2021-05-02 07:51] VITALS: BP 104/62
--- NOTE | 2021-05-02 15:51 | NUR ---
Assumed pt care at 7am. Pt in and out of bed to bathroom today with sba. Assessment completed. vss. Pt wheezes allover lung field. Ivt held till seen by Dr Montes this am. After discussion with the doc, he wanted ivf restarted due to pt dryness after chf tretment with lasix. and friend here to see,updates given. Pt ambulated in hallways with therapist. Fair endurance noted. Pt will possibly dc home in am if stable.Will contine to monitor.
[2021-05-02 16:20] VITALS: BP 94/58
--- NOTE | 2021-05-02 16:39 | NUR ---
DR. SANCHEZ INDICATED THAT PT MAY BE DC READY WEDNESDAY. ELSIE ASKED NURSE TO ORDER EXERCISE OX TEST BUT IT HADN'T BEEN DONE OF YET AT TIME OF THIS NOTE. SHOULD PT QUALIFY FOR HOME O2 UPON DC. PLEASE CONTACT [facility] P: F: . TESTING, FACE SHEET, AND SCRIPT WILL NEED TO BE FAXED TO THEM. CM LEFT [facility] IN MED ROOM TO BE ISSUED IF HE NEEDS IT FOR DC. INITIAL INFO SENT TO [facility].
[2021-05-02 16:57] VITALS: BP 94/58
[2021-05-02 21:35] VITALS: BP 91/51
[2021-05-03 07:29] LABS: CALCIUM 7.8 mg/dL (8.5-10.1); CREATININE 3.9 mg/dL (0.7-1.3); POTASSIUM 5.7 mmol/L (3.5-5.1)
[2021-05-03 07:30] VITALS: BP 108/67
--- NOTE | 2021-05-03 09:03 | NUR ---
ASSUMED CARE AT 1900, PT PREFERS SLEEPING IN THE CHAIR, COMPLIANT TO TX, NO ADVERSE REACTION NOTED, AMBULATED TO THE BATHROOM NEEDED, URINAL WITHIN REACH, CALL LIGHT AND ICED WATER ON THE BEDSIDE TABLE. WILL CONTINUE TO MONITOR.
--- NOTE | 2021-05-03 10:41 | NUR ---
SPOKE WITH CHARGE NURSE ISELA ON POSSIBLE D/C WITH O2 FOR PATIENT IF HE QUALIFIES, WILL NEED A FACESHEET AND A SCRIPT FOR O2. WHEN OBTAINED IS [facility] CAN'T GET AN O2 TANK TO PATIENT, THEY CAN CALL ME AND I WILL GET A [facility] O2 TANK FOR PATIENT OUT OF CLOSET.
--- NOTE | 2021-05-03 18:19 | NUR ---
Pt A & O x4. Pt VS stable. Pt received medications as ordered. Pt is SBA with ADLs and cares. Pt is SR with 1 degree block and BBB on the tele. Pt is on 2L of 02 per nasal cannula. Pt is able to make needs known
[2021-05-03 19:35] VITALS: BP 90/47
[2021-05-03 21:16] VITALS: BP 97/49
[2021-05-04] VITALS: BP 118/60
[2021-05-04 04:00] VITALS: BP 107/60
--- NOTE | 2021-05-04 05:08 | NUR ---
ASSUMED CARE AT 1900, PT PREFERS SLEEPING ON THE RECLINER, REPORTS NO PAIN OR DISCOMFORT, LOW BLOOD PRESURE NOTED, NO NEW PHARMACOLOGICAL ORDER RECEIVED ADVISED TO CONTINUE MONITORING PT COMPLIANT OF TX, NO ADVERSE REACTION NOTED, WILL CONTINUE TO MONITOR.
[2021-05-04 07:51] VITALS: BP 89/52
[2021-05-04 08:18] LABS: CALCIUM 7.7 mg/dL (8.5-10.1); CREATININE 4.3 mg/dL (0.7-1.3); POTASSIUM 5.4 mmol/L (3.5-5.1)
--- NOTE | 2021-05-04 17:04 | NUR ---
Pt A & O x4. Pt VS stable. Pt BP low this shift and BP medications held this shift. Pt is SBA with cares and ADLs. Pt is SR with 1st degree block on the tele. Pt is on 1 L of 02 per nasal canula.
[2021-05-04 17:16] VITALS: BP 102/65
[2021-05-04 19:06] VITALS: BP 120/64
--- NOTE | 2021-05-05 05:25 | NUR ---
ASSUMED CARE AT 1900, PT REMAINS LAYING COMFORTABLY IN BED, REPORTS NO PAIN OR DISCOMFORT, WOUND DRESSING COMPLETED, TOLERATED MEDICATIONS WELL, VOICED NO DISCOMFORT, NPO AFTER MIDNIGHT WILL CONTINUE TO MONITOR.
--- NOTE | 2021-05-05 05:30 | NUR ---
ASSUMED CARE AT 1900, PT REMAINS IN THE CHAIR REPORTS COMFORTABLE, NO PAIN VOICED AT THIS TIME, LEGS ELEVATED, TOLERATED MEDICATIONS WELL, WILL CONTINUE TO MONITOR.
[2021-05-05 05:43] VITALS: BP 114/51
[2021-05-05 06:09] LABS: HEMOGLOBIN 9.6 gm/dL (14.0-18.0); MCH 33.5 pg (26.0-34.0); MCV 104.7 fL (80.0-100.0); RBC 2.86 mil/uL (4.50-6.00); RDW 15.5 % (10.5-14.5); WBC 11.2 thou/uL (4.0-11.0)
[2021-05-05 06:30] LABS: CALCIUM 7.6 mg/dL (8.5-10.1); CREATININE 3.9 mg/dL (0.7-1.3); POTASSIUM 5.1 mmol/L (3.5-5.1)
[2021-05-05 07:26] VITALS: BP 106/58
--- NOTE | 2021-05-05 07:30 | EKG ---
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 : 1940 Requested By: Esequiel Montes Order Number: [id number] MD: Qamar Carreon Measurements Intervals [place] Rate: 77 P: 51 NY: 242 QRS: 38 QRSD: 147 T: 209 QT: 391 QTc: 443 Interpretive Statements Sinus rhythm Prolonged [place] interval IVCD, consider atypical LBBB Compared to ECG 04/27/2021 13:01:25 Myocardial infarct finding no longer present Electronically Signed On 05-05-2021 7:30:07 APPLICATION SUPPORT TECHNICIAN by Qamar Carreon [email or web address] <ELECTRONICALLY SIGNED> By: Qamar Carreon MD, [facility] 05/05/2130 1 1 Qamar Carreon MD, [facility] /EPI
[2021-05-05 10:45] VITALS: BP 107/54
[2021-05-05 15:27] VITALS: BP 113/62
--- NOTE | 2021-05-05 15:41 | NUR ---
DR. SANCHEZ INDICATED THAT PT WILL LIKELY BE MEDICALLY STABLE TO DC HOME TOMORROW. PT HAD EX OX DONE THIS DAY AND NEEDS 3L AT REST AND 4L WITH ACTIVITY. CM FAXED TESTING AND SCRIPT TO [facility]. CM HAD PROVIDED PORTABLE [facility] O2 TANK TO PT ON WEDNESDAY AND IT IS STILL IN HIS ROOM. CM SPOKE WITH PT AND SPOUSE AT BEDSIDE THIS DAY AND THEY ARE AWARE AND AGREEABLE. THEY ARE RECEPTIVE TO HOME HEALTH UPON DC AND INDICATED NO PREFERANCE IN [facility] OPTIONS PROVIDED. THEY ASKED THAT REFERRAL BE SENT TO [facility]. REFERRAL FAXED. CM FOLLOWING REGARDING DC PLANNING.
--- NOTE | 2021-05-05 15:57 | NUR ---
Assumed pt care at 7am.Pt inchair resting and talking about going home in am. Assessment completed.vss.Pt bilat.legs still swelling.Dr Montes and Mo here,order noted.Ivf dc'd and lasix ivp given as ordered. Pt ambulated in hallways with therapist.Good endurance noted.Pt here,updates given and pt instructed on deep breathing. Exercise oximetry done. Will continue to monitor.
[2021-05-05 19:30] VITALS: BP 126/100
[2021-05-06] VITALS (7 sets, daily range): BP systolic 104–139; BP diastolic 60–74
--- NOTE | 2021-05-06 04:21 | NUR ---
ASSUMED CARE OF PT AT 1900. PT IS PLEASANT AND COOPERATIVE. UP WITH SBA TO THE BR. REMAINS ON OXYGEN AND IS SOB WITH EXERTION. CALLS OUT APPROPRIATELY FOR ASSISTANCE. VSS. AFEBRILE. MEDICATIONS GIVEN PER AUG. PT SLEEPS IN CHAIR STATES HE FEELS BETTER SITTING UP RATHER THAN LYING DOWN. EDEMA NOTED IN BILAT LE. FALL PRECAUTIONS IN PLACE.
[2021-05-06 07:36] LABS: CREATININE 3.4 mg/dL (0.7-1.3); POTASSIUM 4.8 mmol/L (3.5-5.1)
--- NOTE | 2021-05-06 09:24 | NUR ---
THIS AM CARE TEAM INDICATED THAT PT IS HAVING SUSTAINED VTACH. HE IS TO BE TRANSFERED TO CCU FOR AMNIO DRIP TO BE ADMINISTERED. CM HAD SET UP [facility] O2 AND [facility] FOR WHEN PT IS DC READY. PT AND SPOUSE ARE AWARE OF DC ARRANGEMENTS AND TRANSFER THIS DAY. CM FOLLOWING.
--- NOTE | 2021-05-06 10:16 | NUR ---
Received pt into room 218 approx. 1000 from 4W w/ sustained vtach episode. Pt currently asymptomatic. Pt transferred on amiodarone bolus. Pt has pacemaker/defibrillator lt chest. Received pt on 1L NC, VSS. Vtach on the monitor. Urinal at bedside. Will continue to assess pt needs.
--- NOTE | 2021-05-06 11:25 | NUR ---
PT WORKED WITH PHYSICAL THERAPY AND RT. PT BEGAN TO HAVE SUSTAINED VTACH ON TELEMETRY. PT C/O WEAKNESS. HE WAS DUSKY IN COLOR BUT NO OTHER S/S. STAT 12 LEAD EKG ORDERED. AND AMIODARONE PROTOCAL INIATED BY CARDIOLOGY. PT WAS THEN TRANSFERED DOWN TO CCU ON TELE VIA BED WITH RN. PT AND AT BEDSIDE HAVE BEEN THOUROUGHLY UPDATED AND EDUCATED ON PT CONDITION AND POC. REPORT GIVEN TO JARON ARANA. PT SLOWLY PROGRESSING TOWARDS POC.
--- NOTE | 2021-05-06 14:03 | EKG ---
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1940 Requested By: Esequiel Montes Order Number: [id number] : Qamar Carreon Measurements Intervals [place] Rate: 87 P: 68 OR: 205 QRS: 266 QRSD: 144 T: -75 QT: 412 QTc: 496 Interpretive Statements Sinus rhythm Nonspecific IVCD with LAD Compared to ECG 05/02/2021 07:22:54 Early repolarization now present No significant changes Electronically Signed On 05-06-2021 14:02:57 NEWS PRODUCTION ASSISTANT by Qamar Carreon [email or web address] <ELECTRONICALLY SIGNED> By: Qamar Carreon MD, [facility] 05/06/21 1402 D: [id number] 2 Qamar Carreon MD, [facility] /EPI
[2021-05-07] VITALS (12 sets, daily range): BP systolic 94–134; BP diastolic 58–89
--- NOTE | 2021-05-07 05:31 | NUR ---
PATIENT CARES WHERE ASSUMED AT SHIFT CHANGE. PATIENT WAS ASSESSED AND MEDS WHERE PASSED. PATIENT CONTINUES ON HIS AMIO GTT AT 16.66 PER HOUR. DOING WELL LONG HE STAYS ON BEDREST. PATIENT DID SLEEP ABOUT EIGHT HOURS THIS SHIFT. ROUNDS WHERE DONE. THE BED IS IN A LOW AND LOCKED POSITION
--- NOTE | 2021-05-07 08:07 | NUR ---
Assumed care of pt this AM. Pt is A&O x4, on 1L NC. SR w/ 1AVB & BBB on the monitor. At 0758, pt went into VTach. VSS. Pt asymptomatic. Running 16.6mL/hr Amiodarone. Cardiology on the unit, d/w SUBASSEMBLY SUPERVISOR. Titrate Amiodarone gtt back up to 33.3mL/hr. Pt typically self converts out of Vtach. Frequent observation in place.
[2021-05-07 08:20] LABS: ALBUMIN 2.8 g/dL (3.4-5.0); CREATININE 3.2 mg/dL (0.7-1.3); PHOSPHORUS 4.1 mg/dL (2.6-4.7); POTASSIUM 4.7 mmol/L (3.5-5.1)
--- NOTE | 2021-05-07 13:00 | NUR ---
Patient transfered to CCU from [facility]. Plan for dc home once stable with new home health care with [facility] and [facility]. PAtient anticipates no discharge over weekend. Patient has oxygen tank in room from [facility] for dc home. If should dc over weekend call Lindsey Enriquez [phone] Zoe [phone] fax fax orders and alert of discharge [facility] [phone] alert of discharge
--- NOTE | 2021-05-07 13:59 | EKG ---
[address] [address] ELECTROCARDIOGRAM REPORT Name: ABIMBOLA CHAMPION Room #: 218-P ADM IN M.R.#: [id number] Admission: 04/27/21 Attend Phys: Esequiel Montes MD Discharge: Date of : 38 Report #: [id number] [facility] Test Date: 2021-05-07 Test Time: 09:04:41 Pat Name: ABIMBOLA CHAMPION Department: Room: 218 P Gender: M Client Relations Representative: : 1940 Requested By: Joce Dougherty Order Number: [id number] MD: Gm Villa Measurements Intervals [place] Rate: 120 P: 0 MO: 83 QRS: -104 QRSD: 207 T: 76 QT: 460 QTc: 651 Interpretive Statements Wide-complex tachycardia Right bundle branch block pattern Compared to ECG 05/06/2021 09:39:54 No significant change Electronically Signed On 05-07-2021 13:58:56 LOAN AND CREDIT MANAGER by Gm Villa [email or web address] <ELECTRONICALLY SIGNED> By: Gm Villa MD 05/07/21 1358 0904 0904 Gm Villa MD /MARIA DE JESUS
--- NOTE | 2021-05-07 15:21 | NUR ---
met with patient who admits from home with CHS exacerbation. patient reports she lives in apt alone. She use a walker, cane in home and community. She cont to drive. She does not use oxygen at home. She has been falling in apt. She has ground floor apt with no steps to enter. She has no lifeline. she reports when she fell she waited for her dtr to call. Dtr calls daily. When she did not respond, dtr went to apt and found her mother. Patient has one child dtr. Discussed likely need for post acute care. Left skilled blue cross list. Patient has Blue Cross Fed plan which may not have a skilled benefit. 5N reports out of network. Patient reports she has never been in skilled/rehab in past. [facility] following.
--- NOTE | 2021-05-07 15:24 | EKG ---
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1940 Requested By: Esequiel Montes Order Number: [id number] MD: mG Villa Measurements Intervals [place] Rate: 120 P: 0 FL: 105 QRS: -97 QRSD: 191 T: 95 QT: 429 QTc: 607 Interpretive Statements Wide-complex tachycardia Right bundle branch block Compared to ECG 05/06/2021 09:33:27 Right bundle-branch block now present Sinus rhythm no longer present Intraventricular conduction delay no longer present Electronically Signed On 05-07-2021 15:24:38 RETAIL ROUTE SUPERVISOR by Gm Villa [email or web address] <ELECTRONICALLY SIGNED> By: Gm Villa MD 05/07/21 1524 8 8 Gm Villa MD /MARIA DE JESUS
[2021-05-08 03:20] VITALS: BP 148/66
[2021-05-08 08:14] LABS: ALBUMIN 2.9 g/dL (3.4-5.0); CALCIUM 7.9 mg/dL (8.5-10.1); PHOSPHORUS 3.6 mg/dL (2.6-4.7); POTASSIUM 4.8 mmol/L (3.5-5.1)
--- NOTE | 2021-05-08 08:40 | NUR ---
ASSUME CARE 1900. PT/VITALS STABLE. DENIES ANY PAIN. MODERATE TOLERANCE TO ACTIVITY. SR/1D/BBB NOTE ON MONITOR. NO DISTRESS NOTED. NO EPISODES OF ARRHYTHMIA NOTED THROUGH THE SHIFT. PT ON AMIO DRIP, RATE CONTROLLED. ASSESSMENT CHARTED. PROGRESSING WELL WITH POC. PLAN IS TO CONTINUE TO MONITOR RATE AD RHYTHM AND CONTINUE PT ON AMIO. WILL MONITOR AND FOLLOW WITH POC
[2021-05-08 11:52] VITALS: BP 138/66
[2021-05-08 16:00] VITALS: BP 137/73
[2021-05-08 19:32] VITALS: BP 134/69
[2021-05-09 03:40] VITALS: BP 141/70
--- NOTE | 2021-05-09 04:43 | NUR ---
pt resting quietly in bed thru the noc with out any c/o pain, cardizem gtt con't to infuse in r fa, vss, con't to void clr yellow urine per urinal, will con't to monitor per ppoc.
[2021-05-09 07:55] LABS: ALBUMIN 2.9 g/dL (3.4-5.0); CALCIUM 8.1 mg/dL (8.5-10.1); PHOSPHORUS 4.2 mg/dL (2.6-4.7); POTASSIUM 5.1 mmol/L (3.5-5.1)
[2021-05-09 08:03] VITALS: BP 118/64
[2021-05-09 11:57] VITALS: BP 116/65
[2021-05-09 16:56] VITALS: BP 136/83
--- NOTE | 2021-05-09 18:44 | NUR ---
REPORT RECEIVED ON THIS PATIENT AT 0700. PATIENT RESTING IN BED DURING REPORT. PATIENT WEARING 2.5 L NC AT THIS TIME. DENIES ANY SOA. PATIENT HAD EPISODE OF SOA EARLIER IN THE AFTERNOON; RESPIRATORY TREATMENT AND OXYGEN INCREASED. DENIES ANY CHEST PAIN. ASSESSMENT CHARTED. FAMILY PRESENT IN THE ROOM AT THIS TIME. AMBULATED PATIENT TO BATHROOM X1 ASSIST WITH GAIT BELT AND WALKER. FALL PRECAUTIONS IN PLACE. CALL LIGHT WITIN REACH.
[2021-05-09 19:06] VITALS: BP 118/63
[2021-05-10 03:36] VITALS: BP 115/68
[2021-05-10 03:55] LABS: ALBUMIN 2.8 g/dL (3.4-5.0); CALCIUM 7.9 mg/dL (8.5-10.1); CREATININE 2.8 mg/dL (0.7-1.3); PHOSPHORUS 4.3 mg/dL (2.5-4.9); POTASSIUM 5.1 mmol/L (3.5-5.1)
[2021-05-10 07:00] VITALS: BP 129/55
--- NOTE | 2021-05-10 07:38 | NUR ---
ASSUMED PT CARE AT 1900, ALERT AND ORIENTEDX4, SR/AVB/BBB ON TELE, ON 3.5L OF 02 VIA NASAL CANULA, O2SATS STABLE, ASSESSMENTS CHARTED, MEDS GIVEN PER AUG, NO DISTRESS NOTED, REPORT GIVEN TO DAY SHIFT RN
--- NOTE | 2021-05-10 10:31 | NUR ---
TOOK OVER CARE OF AT 0700. PATIENT WEARING 2.5 L OXGEN VIA NASAL CANNULA. PATIENT REPORTS NOT BEING ABLE TO TAKE A DEEP BREATH; LUNGS CLEAR BUT DIMINISHED; RESPIRATORY TREATMENTS SCHEDULED AND INFORMED PROVIDER. ASSESSMENT CHARTED. DENIES ANY PAIN OR CHEST PAIN. VSS. FALL PRECAUTIONS IN PLACE AND CALL LIGHT WITHIN REACH. WILL CONTINUE TO MONITOR.
[2021-05-10 12:00] VITALS: BP 141/65
[2021-05-10 17:00] VITALS: BP 111/59
[2021-05-10 20:13] VITALS: BP 96/61
[2021-05-10 20:15] VITALS: BP 99/53
[2021-05-11 00:30] VITALS: BP 107/54
--- NOTE | 2021-05-11 01:51 | NUR ---
ASSUMED PT CARE AT 1900, ALERT AND ORIENTEDX4, DENIES PAIN OR SOA, ON 2L OF VIA NASAL CANULA, AMBULATED TO THE DOOR AND BACK TO THE CHAIRX1, TOLERATED WELL, ASSESSMENTS CHARTED, HEART RHYTHM AND RATE REMAINS STABLE, SR/1DAVB/BBB NOTED ON TELEMETRY, AMIO HELD D/T TO BP IN THE 90S SYSTOLIC, PT IS SLEEPING IN THE CHAIR WITH NO DISTRESS AT THIS TIME, WILL CONTINUE TO MONITOR PT PER POC
[2021-05-11 04:45] VITALS: BP 122/97
[2021-05-11 07:44] LABS: ALBUMIN 2.8 g/dL (3.4-5.0); BUN 103 mg/dL (7-18); CHLORIDE 107 mmol/L (98-107); CO2 37 mmol/L (21-32); GLUCOSE 98 mg/dL (74-106); PHOSPHORUS 4.3 mg/dL (2.6-4.7)
[2021-05-11 07:50] LABS: ANION GAP < 0 mmol/L (7-16); POTASSIUM 5.6 mmol/L (3.5-5.1); SODIUM 143 mmol/L (136-145)
[2021-05-11 08:10] VITALS: BP 109/54
[2021-05-11 11:50] VITALS: BP 98/46
[2021-05-11 15:55] VITALS: BP 99/42
--- NOTE | 2021-05-11 16:53 | NUR ---
PATIENT ASSESMENTS CHARTED. PATIENT COMFORTABLE WITH NO CONCERNS VOICED. FAMILY VISITED PATIENT.
[2021-05-11 19:33] VITALS: BP 115/52
[2021-05-12 04:18] LABS: ALBUMIN 2.6 g/dL (3.4-5.0); CALCIUM 7.8 mg/dL (8.5-10.1); CREATININE 2.8 mg/dL (0.7-1.3); PHOSPHORUS 3.9 mg/dL (2.5-4.9); POTASSIUM 5.2 mmol/L (3.5-5.1)
[2021-05-12 04:28] VITALS: BP 106/61
[2021-05-12] MEDS ORDERED: ALBUTEROL2.5 MG/0.5 INH (07:23)
[2021-05-12] MEDS ORDERED: CARVEDILOL3.125 MG PO (07:24)
[2021-05-12] MEDS ORDERED: TORSEMIDE20 MG PO (07:25)
[2021-05-12] MEDS ORDERED: ALLOPURINOL 10100 M3 PO (07:26)
[2021-05-12] MEDS ORDERED: PULMICORT0.5 MG/21 INH (07:26)
--- NOTE | 2021-05-12 07:28 | NUR ---
PT RESTING QUIETLY HOPING TO GO HOME TODAY, VSS, REMAINS ON 2L/NC, VOIDS PER URINAL, NO C/O PAIN, WILL CON'T TO MONITOR PER PPOC.
[2021-05-12 07:55] VITALS: BP 101/60
[2021-05-12 12:00] VITALS: BP 103/58
[2021-05-12] MEDS ORDERED: PACERONE 200 M200 M1 PO (12:38)
[2021-05-12] MEDS ORDERED: ELIQUIS2.5 MG PO (12:38)
--- NOTE | 2021-05-12 13:29 | NUR ---
THIS RN PUT RESTRAINT INTERVENTION FOR THIS PATIENT. THIS PATIENT WAS NEVER IN RESTRAINTS. CHARTING WAS MIXED UP WITH ANOTHER PATIENT.
[2021-05-12 13:53] VITALS: BP 94/58
--- NOTE | 2021-05-12 14:48 | NUR ---
patient to dc home with care. He has oxygen tank in room and instructed to call [facility] as he arrives home. Patient completed new sat/excercise with need for oxygen at 2liters at rest and 4liters with activity. Updated [facility]. Faxed orders to Zoe ANDERSON. sp with Zoe they rec orders with start of care in am.
== END 2021-05-12 17:15 | disposition home health service (06) | DRG 291 ==
LOC: ER 12:48 → 2N 14:17 → EROBS 14:17 → 4W 14:17 → 2N 05-06 10:01
PROVIDERS: Emergency Medicine; Hospitalist; Internal Medicine; ADMIT Family Medicine; ATTEND Family Medicine
PROC: 4B02XSZ Measurement of Cardiac Pacemaker, External Approach (ICD-10-PCS; principal; 2021-04-28)
DX: I13.0 Hypertensive heart and chronic kidney disease with heart failure and stage 1 through stage 4 chronic kidney disease, or unspecified chronic kidney disease (principal); I50.23 Acute on chronic systolic (congestive) heart failure; N17.0 Acute kidney failure with tubular necrosis; J96.21 Acute and chronic respiratory failure with hypoxia; J44.1 Chronic obstructive pulmonary disease with (acute) exacerbation; I47.2 Ventricular tachycardia; I25.5 Ischemic cardiomyopathy; I48.0 Paroxysmal atrial fibrillation; R53.81 Other malaise; J20.9 Acute bronchitis, unspecified; D64.9 Anemia, unspecified; I47.9 Paroxysmal tachycardia, unspecified; M10.00 Idiopathic gout, unspecified site; E87.5 Hyperkalemia; N18.32 Chronic kidney disease, stage 3b; I25.10 Atherosclerotic heart disease of native coronary artery without angina pectoris; E78.5 Hyperlipidemia, unspecified; G47.33 Obstructive sleep apnea (adult) (pediatric); J45.909 Unspecified asthma, uncomplicated; Z20.822 Contact with and (suspected) exposure to COVID-19; I25.2 Old myocardial infarction; Z95.1 Presence of aortocoronary bypass graft; E03.9 Hypothyroidism, unspecified; I95.9 Hypotension, unspecified; I34.0 Nonrheumatic mitral (valve) insufficiency; Z85.46 Personal history of malignant neoplasm of prostate; Z90.49 Acquired absence of other specified parts of digestive tract; Z95.0 Presence of cardiac pacemaker
CPT/HCPCS: 10045; 10081

== ENCOUNTER 2021-05-19 09:28 | Inpatient (IN) | payer OTHER ==
[~2021-05-19] VITALS: Ht 170.2 cm; Wt 116.2 kg
[2021-05-19 09:28] VITALS: BP 108/82
[~2021-05-19 09:28] MED LIST changes: +ALBUTEROL2.5 MG/0.5 INH; +ALLOPURINOL 10100 M3 PO; +CARVEDILOL3.125 MG PO; +ELIQUIS2.5 MG PO; +PULMICORT0.5 MG/21 INH
[2021-05-19 09:42] LABS: BASOPHILS 0.3 % (0.0-2.0); EOSINOPHILS 0.6 % (0.0-3.0); HEMATOCRIT 29.1 % (42.0-52.0); HEMOGLOBIN 9.3 gm/dL (14.0-18.0); LYMPHOCYTES 5.1 % (24.0-44.0); MCH 33.2 pg (26.0-34.0); MCHC 31.9 g/dL (28.0-37.0); MONOCYTES 12.9 % (1.0-8.0); POLYS 81.1 % (36.0-66.0); RDW 16.1 % (10.5-14.5); WBC 12.4 thou/uL (4.0-11.0)
[2021-05-19 09:48] LABS: CALCIUM 8.2 mg/dL (8.5-10.1); CREATININE 3.1 mg/dL (0.7-1.3); POTASSIUM 5.5 mmol/L (3.5-5.1)
[2021-05-19 09:59] LABS: ALBUMIN 2.8 g/dL (3.4-5.0); MAGNESIUM 2.4 mg/dL (1.8-2.4); TOTAL BILIRUBIN 1.2 mg/dL (0.2-1.0); TOTAL PROTEIN 6.4 g/dL (6.4-8.2)
[2021-05-19 10:17] LABS: ANISOCYTOSIS 1+; PLATELET COUNT 87 thou/uL (150-400); PLATELET ESTIMATE NORMAL
[2021-05-19 12:45] LABS: URINE BILIRUBIN NEGATIVE (Negative); URINE BLOOD NEGATIVE (Negative); URINE CLARITY CLEAR; URINE COLOR YELLOW; URINE GLUCOSE-RANDOM* NEGATIVE (Negative); URINE KETONES NEGATIVE (Negative); URINE LEUKOCYTES-REFLEX NEGATIVE (Negative); URINE NITRITE-REFLEX NEGATIVE (Negative); URINE PROTEIN (DIPSTICK) 2+ (Negative); URINE SPECIFIC GRAVITY 1.025 (1.005-1.035); URINE UROBILINOGEN 0.2 E.U./dl (0.2-1.0)
[2021-05-19 13:00] LABS: SQUAMOUS 4-10 Moderate /LPF (0-3)
[2021-05-19 13:01] LABS: URINE RBC None Seen /HPF (NONE SEEN); URINE WBC-REFLEX 0-5 Rare /HPF (0-5)
[2021-05-19 13:02] LABS: AMORPHOUS URATES Few /LPF (None Seen); CASTS None Seen /LPF (None Seen)
[2021-05-19 18:30] VITALS: BP 104/55
--- NOTE | 2021-05-19 18:34 | NUR ---
PATIENT ARRIVED FROM ER. TRANSFERRED OVER TO PATIENT BED. VS TAKEN. EXCORIATION NOTED TO PANUS AND GROIN AREA. AMIO GTT CONTINUED AT 16.66 ML/HOUR. REMAINS ON 4LNC. SET UP FOR DINNER. GLUCOSE TAKEN, 105. NO INSULIN NEEDED. WCTM
[2021-05-19 20:11] VITALS: BP 102/58
[2021-05-20] VITALS (29 sets, daily range): BP systolic 93–137; BP diastolic 44–99
--- NOTE | 2021-05-20 00:34 | NUR ---
PT ADMITTED TO ROOM 212 FROM ER WITH AMIODARONE GTT INFUSING IN R HAND, VSS, HR NSR 70'S, NO C/O PAIN, VOIDING PER URINAL WITH ASSIST, SPOUSE AT BEDSIDE OFFERING SUPPORT AND HELP WITH ADMISSION QUESTIONS, ORIENTED TO ROOM AND UNIT, WILL CON'T TO MONITOR PER PPOC.
--- NOTE | 2021-05-20 08:02 | EKG ---
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 : 1940 Requested By: Naman Whalen Order Number: [id number] MD: Byron Holbrook Measurements Intervals [place] Rate: 103 P: 248 MN: 43 QRS: -100 QRSD: 191 T: 84 QT: 428 QTc: 561 Interpretive Statements Sinus or ectopic atrial tachycardia Multiple ventricular premature complexes Nonspecific intraventricular conduction delay Compared to ECG 05/07/2021 09:04:41 Wide-complex tachycardia is no longer present Electronically Signed On 05-20-2021 8:02:12 CIAIO COUNTER MOLDER by Byron Holbrook [email or web address] <ELECTRONICALLY SIGNED> By: Byron Holbrook MD, [facility] 05/20/21 0802 5 5 Byron Holbrook MD, [facility] /EPI
--- NOTE | 2021-05-20 08:24 | EKG ---
[place] [address] 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 05/20/21823 3 3 Byron Holbrook MD, FACC /EPI
[2021-05-20 09:38] LABS: HEMATOCRIT 27.2 % (42.0-52.0); HEMOGLOBIN 8.6 gm/dL (14.0-18.0); MCH 33.2 pg (26.0-34.0); MCHC 31.6 g/dL (28.0-37.0); MCV 105.1 fL (80.0-100.0); RBC 2.59 mil/uL (4.50-6.00); WBC 11.4 thou/uL (4.0-11.0)
[2021-05-20 09:56] LABS: BE(vivo) 4.9 mmol/L (-2 to +3); HCO3 31.8 mmol/L (22.0-26.0); PCO2 60.5 mmHg (35.0-45.0); PO2 57.4 mmHg (80.0-100.0); pH 7.338 (7.360-7.450); sO2 87.4 % (92.0-98.0)
[2021-05-20 10:25] LABS: APTT 41.4 Seconds (24.5-32.8); INR 1.3
[2021-05-20 10:27] LABS: CREATININE 3.7 mg/dL (0.7-1.3)
[2021-05-20 10:33] LABS: POTASSIUM 6.2 mmol/L (3.5-5.1)
--- NOTE | 2021-05-20 11:16 | NUR ---
Assumed care of pt this AM. Received pt on 6L NC. This nurse checked O2 sat, which was 89%. Titrated pt up to 8L NC to achieve 92%. Report received that pt had gotten Lasix IVP without any urine output. Asked physician for melendrez order. Scant urine return on insertion. Bladder scanned pt without any urine in bladder. Notified nephrology & started Lasix gtt per Dr order. Pt continued to drop O2 sat into 80s without return of appropriate sat level. Called RT who placed pt on bipap. Pt still without barely any UOP after on IV lasix x 1hr. Called rapid response per unit control clerk & house sup. Orders received from physicans. Pt transferred to IR for temporary dialysis cath placement w/ transfer to ICU after. All belongings sent to pt room & report called to nurse.
[2021-05-20 12:01] LABS: BE(vivo) 6.2 mmol/L (-2 to +3); HCO3 32.8 mmol/L (22.0-26.0); PCO2 59.8 mmHg (35.0-45.0); PO2 61.4 mmHg (80.0-100.0); pH 7.357 (7.360-7.450); sO2 89.9 % (92.0-98.0)
[2021-05-20 12:12] LABS: ABSOLUTE NEUTROPHILS 8.7 thou/uL (1.4-8.2); BASOPHILS 0.2 % (0.0-2.0); HEMATOCRIT 26.3 % (42.0-52.0); HEMOGLOBIN 8.6 gm/dL (14.0-18.0); LYMPHOCYTES 1.7 % (24.0-44.0); MCH 34.1 pg (26.0-34.0); MCHC 32.6 g/dL (28.0-37.0); MCV 104.4 fL (80.0-100.0); MONOCYTES 10.6 % (1.0-8.0); PLATELET COUNT 74 thou/uL (150-400); POLYS 87.5 % (36.0-66.0); RBC 2.52 mil/uL (4.50-6.00)
--- NOTE | 2021-05-20 12:23 | NUR ---
Pt with tachypnea & low o2 sats-TANBARK PEELER activated-see flowsheet
--- NOTE | 2021-05-20 12:26 | EKG ---
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 05/20/21 1225 0949 0949 Qamar Carreon MD, FACC /EPI
[2021-05-20 12:49] LABS: INR 1.32; PROTIME 14.2 Seconds (10.5-12.1)
[2021-05-20 12:53] LABS: APTT 56.5 Seconds (24.5-32.8)
--- NOTE | 2021-05-20 13:27 | NUR ---
ORDERS RECEIVED FOR PT EVAL AND TREAT. DIRECTOR OF OCCUPATIONAL THERAPY CALLED ON Pt THIS AM AND Pt PLACED ON BIPAP, TAKEN TO IR FOR TEMP DIALYSIS CATHETER PLACEMENT, AND THEN TRANSFER TO ICU. WILL PLACE Pt ON HOLD AND NEED NEW ORDER FOR PT INTERVENTION WHEN Pt MEDICALLY APPROPRIATE.
[2021-05-20 19:45] LABS: ALBUMIN 2.5 g/dL (3.4-5.0); CALCIUM 7.9 mg/dL (8.5-10.1); PHOSPHORUS 3.8 mg/dL (2.6-4.7); TOTAL BILIRUBIN 1.5 mg/dL (0.2-1.0); TOTAL PROTEIN 5.3 g/dL (6.4-8.2)
[2021-05-20 19:46] LABS: CREATININE 2.6 mg/dL (0.7-1.3); POTASSIUM 5.2 mmol/L (3.5-5.1)
--- NOTE | 2021-05-20 21:44 | NUR ---
Nursing Note At start of shift; ax temp 99.9f; blankets removed; temp adjusted. Patient resting on Bipap at 45% fio2; vss, on lasix and amio gtt. [place] to DD continues to be bloody/clotted; per nephrology ok to flush; call to Dr. Golden about continued clotted bloody urine; no new orders; will take time to resolve. at 2100 gave patient a break from bipap for approx 5-10mins; was put on 4L HFNC; oxygen sats 91-93%; pt stated he felt better but still had mild SOB. WOB normal. Pt returned to bipap and previous settings. Temp returned to normal 98.2f; per pt; had been cold after HD; multiple warm blankets applied prior to end of dayshift. NSR; vss; no c/o pain Will continue to closely monitor Rosalinda ROJAS RN
[2021-05-21] VITALS (56 sets, daily range): BP systolic 86–187; BP diastolic 27–159
[2021-05-21 04:45] LABS: ALBUMIN 2.4 g/dL (3.4-5.0); CALCIUM 7.6 mg/dL (8.5-10.1); CREATININE 2.9 mg/dL (0.7-1.3); PHOSPHORUS 3.7 mg/dL (2.5-4.9); POTASSIUM 5.6 mmol/L (3.5-5.1)
[2021-05-21 05:04] LABS: HEMATOCRIT 23.9 % (42.0-52.0); HEMOGLOBIN 7.9 gm/dL (14.0-18.0); MCH 34.2 pg (26.0-34.0); MCHC 32.9 g/dL (28.0-37.0); MCV 104.1 fL (80.0-100.0); RBC 2.3 mil/uL (4.50-6.00); RDW 15.9 % (10.5-14.5); WBC 8.5 thou/uL (4.0-11.0)
[2021-05-21 13:08] LABS: HEP B SURFACE Ab(ANTI-HBS Non Reactive (()); HEPATITIS B SURFACE AG Negative (Negative)
--- NOTE | 2021-05-21 16:54 | NUR ---
PATIENT NOT PROGRESSING TOWARDS THE PLAN OF CARE EVIDENCED BY CONTINUED HEMOPTIC URINE. UROLOGY CONSULTED TODAY. 25 ML OF UOP TODAY. IN THE ROOM FOR MOST OF THE DAY AND SHE WAS UPDATED AND EDUCATED ON THE PATIENT'S CONDITION AND PLAN OF CARE.
--- NOTE | 2021-05-21 17:04 | NUR ---
PT ADMITTED RELATED TO ACUTE CHF, NON-SUSTAINED V-TACH, CKD. CM REVIEWED CHART AND SPOKE WITH CARE TEAM DURING ICU ROUNDS THIS AM. PT HAD DISCHARGED HOME 05/12/21 WITH [facility] AND [facility] 02 2L AT REST 3 WITH ACTIVITY. PT RESIDES IN A HOUSE WITH HIS . PT HAD TEMP DIALYSIS CATH PLACED. GOT DIALYSIS YESTERDAY AND TODAY. PT IS ON 3L O2 CURRENTLY. STOOL SAMPLE TO BE COLLECTED. CM FOLLOWING REGARDING DC PLANNING.
[2021-05-21 19:00] LABS: ALBUMIN 2.6 g/dL (3.4-5.0); BUN 42 mg/dL (7-18); CALCIUM 7.8 mg/dL (8.5-10.1); CHLORIDE 96 mmol/L (98-107); CO2 30 mmol/L (21-32); CREATININE 2.4 mg/dL (0.7-1.3); GLUCOSE 136 mg/dL (74-106); PHOSPHORUS 3.5 mg/dL (2.6-4.7)
[2021-05-21 19:01] LABS: ANION GAP < 0 mmol/L (7-16); POTASSIUM 4.5 mmol/L (3.5-5.1); SODIUM 124 mmol/L (136-145)
[2021-05-21 19:13] LABS: D-DIMER 0.78 ug/mLFEU (0.19-0.50); INR 1.39; PROTIME 14.9 Seconds (10.5-12.1)
[2021-05-21 19:20] LABS: APTT 31.3 Seconds (24.5-32.8)
[2021-05-22] VITALS (64 sets, daily range): BP systolic 41–173; BP diastolic 11–146
--- NOTE | 2021-05-22 03:42 | NUR ---
ASSUMED CARE OF PT AT 1900. DR SANTANA AT BEDSIDE AT 1899. ORDERS GIVEN. DR SANTANA CALLED AT [address] FINDINGS. WILL FOLLOW POC.
[2021-05-22 04:14] LABS: ALBUMIN 2.5 g/dL (3.4-5.0); CALCIUM 7.9 mg/dL (8.5-10.1); PHOSPHORUS 4.1 mg/dL (2.5-4.9); POTASSIUM 4.9 mmol/L (3.5-5.1)
[2021-05-22 08:02] LABS: URINE BLOOD 3+ (Negative); URINE GLUCOSE-RANDOM* NEGATIVE (Negative); URINE KETONES TRACE (Negative); URINE LEUKOCYTES 1+ (Negative); URINE NITRITE POSITIVE (Negative); URINE PROTEIN (DIPSTICK) 3+ (Negative); URINE SPECIFIC GRAVITY 1.015 (1.005-1.035)
[2021-05-22 08:08] LABS: ICTOTEST (BILI CONFIRMATORY) Negative (Negative); URINE BILIRUBIN NEGATIVE (Negative); URINE CLARITY CLOUDY; URINE COLOR RED
[2021-05-22 09:17] LABS: URINE RBC >20 Many /HPF (NONE SEEN)
[2021-05-22 09:18] LABS: BACTERIA 1-9 Few /HPF (None Seen); CASTS None Seen /LPF (None Seen); CRYSTALS None Seen /LPF (None Seen); SQUAMOUS None Seen /LPF (0-3); URINE WBC 1-5 Rare /HPF (NONE SEEN)
[2021-05-22 12:44] LABS: CALCIUM 8.2 mg/dL (8.5-10.1); CREATININE 2.1 mg/dL (0.7-1.3)
--- NOTE | 2021-05-22 12:47 | NUR ---
PT HAD HD TODAY TAKING 2L OFF THIS MORNING. HE IS NOT MAKING URINE, UROLOGY AND HOSPITALIST IS NOTIFIED. PT IS CONFUSED W/ HALLUCINATIONS. NO S/S OF CVA IS NOTED BUT HOSPITALIST IS NOTIFIED OF THE CHANGE IN MENTATION. THE PLAN IS TO CONTINUE DIALYSIS TX TOMORROW AND WEDNESDAY. HIS IS AT THE BEDSIDE; SHE IS UPDATED OF HIS STATUS.
[2021-05-22 15:17] LABS: ALBUMIN 2.5 g/dL (3.4-5.0); CALCIUM 7.7 mg/dL (8.5-10.1); CREATININE 2.4 mg/dL (0.7-1.3); PHOSPHORUS 3.9 mg/dL (2.6-4.7); POTASSIUM 4.3 mmol/L (3.5-5.1)
[2021-05-22 15:28] LABS: HEMATOCRIT 22.2 % (42.0-52.0); HEMOGLOBIN 7.5 gm/dL (14.0-18.0); MCH 34.6 pg (26.0-34.0); MCHC 33.7 g/dL (28.0-37.0); MCV 102.5 fL (80.0-100.0); RBC 2.17 mil/uL (4.50-6.00); RDW 16.2 % (10.5-14.5)
--- NOTE | 2021-05-22 16:28 | NUR ---
PT'S CARE DISCUSSED IN ICU ROUNDS THIS DAY. PT IS ON 7L AT THIS TIME. PT GETTING DIALYSIS DAILY ANTICIPATED THROUGH WEDNESDAY. CM FOLLOWING REAGARDING DC PLANNING.
[2021-05-23] VITALS (82 sets, daily range): BP systolic 63–130; BP diastolic 23–86
--- NOTE | 2021-05-23 01:20 | NUR ---
Nursing Note At start of shift noted that pt was very confused and impulsive; hallucinating; but would have moments of lucid thoughts; expressed to RN that he'd lived a good life, and was ready to go home and ; that he felt accomplished'.- then returned to being confused/restless and impulsive on 5L NC; VSS; Call to MD for precedex gtt and restart bipap, order for levo. pt was difficult to sedate; once sedated enough to wear the bipap and not trying to get OOB; bp did get very hypotensive- levo started and titrated. Call to patient's to discuss code status; expressed wishes for pt to be 'No Code'; and discussed POC with ; and pending HD in a.m. very appreciative of care. Patient now resting well and tolerating bipap; gtts titrated to effect. Amio 0.5 Precedex 0.8 Levo 12 VSS. Will continue to closely monitor Rosalinda ROJAS RN
[2021-05-23 02:17] LABS: HEMATOCRIT 23.7 % (42.0-52.0); HEMOGLOBIN 7.9 gm/dL (14.0-18.0); MCH 34.4 pg (26.0-34.0); MCHC 33.3 g/dL (28.0-37.0); MCV 103.5 fL (80.0-100.0); RBC 2.29 mil/uL (4.50-6.00); RDW 16.1 % (10.5-14.5); WBC 10.7 thou/uL (4.0-11.0)
[2021-05-23 03:02] LABS: ALBUMIN 2.6 g/dL (3.4-5.0); CALCIUM 7.7 mg/dL (8.5-10.1); CREATININE 3.2 mg/dL (0.7-1.3); PHOSPHORUS 4.4 mg/dL (2.6-4.7); POTASSIUM 5.1 mmol/L (3.5-5.1)
--- NOTE | 2021-05-23 10:15 | NUR ---
THIS RN SPOKE WITH EZEQUIEL, THE OF THE PATIENT IN ROOM 244, OVER THE PHONE AT 1005 AND SHE WAS UPDATED ON THE PATIENT'S CONDITION. SHE INFORMED THIS RN THAT SHE WOULD BE ARRIVING "A QUARTER TILL 11" THIS MORNING AND WOULD TALK WITH THE PATIENT AND DECIDE FUTURE CARE. THIS RN INFORMED DR. SCHULTZ OF THIS AT 1008 AND HE SAID THAT THE PATIENT MAY NEED CENTRAL LINE FOR COMFORT MEDS. DR. SCHULTZ TOLD THIS RN THAT HE WOULD SPEAK WITH THE OF THE PATIENT AND THE PATIENT AFTER ROUNDS AND TO HOLD OFF ON CENTRAL LINE PLACEMENT UNTIL THEN.
--- NOTE | 2021-05-23 16:54 | NUR ---
PATIENT NOT PROGRESSING TOWARDS THE PLAN OF CARE. COMFORT CARE TO BE INITIATED ONCE PATIENT FINISHES DINNER PER PATIENT AND OF PATIENT'S REQUEST. SON OF PATIENT, LATRICE, VISITED IN PERSON. IN ROOM CURRENTLY.
--- NOTE | 2021-05-23 17:00 | NUR ---
HOSPITALIST HAD SPOKEN WITH PT'S SPOUSE AND SHE INDICATED THAT SHE WANTED PT TO BE A NO CODE AND WANTS HIM TO TRANSITION TO COMFORT CARE. CM SPOKE WITH HOSPITALIST AND NURSE AND ALL ARE AWARE. CM FOLLOWING.
--- NOTE | 2021-05-23 23:25 | NUR ---
Pt resting comfortably in bed; morphine gtt infusing at 2 mg/hr. No SOA, dypsnea, or pain.
--- NOTE | 2021-05-24 07:50 | NUR ---
Nursing Note Assumed care of pt at approx 0500; pt resting with morphine gtt; noted mild confusion; very appreciative of care and happy to be on comfort care; states he's "ready to ", in good spirits and jokes with RN. at 0630 pt trying to get OOB; had taken off gown; noted blood from around urethra; pt given a bath and linen change. Pt appreciative of all the care, at peace. Rosalinda ROJAS RN
--- NOTE | 2021-05-24 09:11 | NUR ---
PATIENT'S , EZEQUIEL CHAMPION, AND SON, LATRICE, VISITED IN ROOM AT 0855 AFTER PATIENT .
== END 2021-05-24 08:12 | DRG 291 ==
LOC: ER 09:28 → ICU 12:05 → EROBS 12:05 → 2N 18:04 → ICU 05-20 11:02
PROVIDERS: Emergency Medicine; Hospitalist; Internal Medicine; Internal Medicine Pulmonary Disease; Nurse Practitioner; ADMIT Hospitalist; ATTEND Hospitalist
PROC: 5A09357 Assistance with Respiratory Ventilation, Less than 24 Consecutive Hours, Continuous Positive Airway Pressure (ICD-10-PCS; principal; 2021-05-19)
PROC: B548ZZA Ultrasonography of Superior Vena Cava, Guidance (ICD-10-PCS; 2021-05-20)
PROC: 5A09357 Assistance with Respiratory Ventilation, Less than 24 Consecutive Hours, Continuous Positive Airway Pressure (ICD-10-PCS; 2021-05-20)
PROC: B5181ZA Fluoroscopy of Superior Vena Cava using Low Osmolar Contrast, Guidance (ICD-10-PCS; 2021-05-20)
PROC: 02HV33Z Insertion of Infusion Device into Superior Vena Cava, Percutaneous Approach (ICD-10-PCS; 2021-05-20)
PROC: 5A1D70Z Performance of Urinary Filtration, Intermittent, Less than 6 Hours Per Day (ICD-10-PCS; 2021-05-21)
PROC: 5A09357 Assistance with Respiratory Ventilation, Less than 24 Consecutive Hours, Continuous Positive Airway Pressure (ICD-10-PCS; 2021-05-21)
PROC: 5A0935A Assistance with Respiratory Ventilation, Less than 24 Consecutive Hours, High Flow/Velocity Cannula (ICD-10-PCS; 2021-05-21)
PROC: 5A0935A Assistance with Respiratory Ventilation, Less than 24 Consecutive Hours, High Flow/Velocity Cannula (ICD-10-PCS; 2021-05-22)
PROC: 5A1D70Z Performance of Urinary Filtration, Intermittent, Less than 6 Hours Per Day (ICD-10-PCS; 2021-05-22)
PROC: 5A0935A Assistance with Respiratory Ventilation, Less than 24 Consecutive Hours, High Flow/Velocity Cannula (ICD-10-PCS; 2021-05-23)
PROC: 5A09357 Assistance with Respiratory Ventilation, Less than 24 Consecutive Hours, Continuous Positive Airway Pressure (ICD-10-PCS; 2021-05-23)
DX: I13.0 Hypertensive heart and chronic kidney disease with heart failure and stage 1 through stage 4 chronic kidney disease, or unspecified chronic kidney disease (principal); I50.33 Acute on chronic diastolic (congestive) heart failure; J96.21 Acute and chronic respiratory failure with hypoxia; J96.22 Acute and chronic respiratory failure with hypercapnia; G92.8 Other toxic encephalopathy; R65.11 Systemic inflammatory response syndrome (SIRS) of non-infectious origin with acute organ dysfunction; N17.9 Acute kidney failure, unspecified; I47.1 Supraventricular tachycardia; I48.92 Unspecified atrial flutter; D68.59 Other primary thrombophilia; Z68.41 Body mass index [BMI] 40.0-44.9, adult; Z20.822 Contact with and (suspected) exposure to COVID-19; E78.5 Hyperlipidemia, unspecified; I73.9 Peripheral vascular disease, unspecified; E03.9 Hypothyroidism, unspecified; N18.9 Chronic kidney disease, unspecified; I25.5 Ischemic cardiomyopathy; J45.909 Unspecified asthma, uncomplicated; G47.33 Obstructive sleep apnea (adult) (pediatric); I48.0 Paroxysmal atrial fibrillation; E66.9 Obesity, unspecified; Z96.641 Presence of right artificial hip joint; D64.9 Anemia, unspecified; M10.9 Gout, unspecified; I08.3 Combined rheumatic disorders of mitral, aortic and tricuspid valves; R31.0 Gross hematuria; Z66 Do not resuscitate; Z95.1 Presence of aortocoronary bypass graft; I25.2 Old myocardial infarction; Z90.49 Acquired absence of other specified parts of digestive tract; Z98.49 Cataract extraction status, unspecified eye; Z95.0 Presence of cardiac pacemaker; Z85.46 Personal history of malignant neoplasm of prostate; Z79.01 Long term (current) use of anticoagulants; Z51.5 Encounter for palliative care
CPT/HCPCS: 10078; 10081; 10203; 32100